=== PATIENT | male | born 1970 | race Caucasian/White ===

== ENCOUNTER 2017-11-24 13:28 | Inpatient (IN) | payer SELFPAY ==
[~2017-11-24] VITALS: Ht 193 cm; Wt 75.3 kg
[2017-11-24] VITALS (14 sets, daily range): BP systolic 100–143; BP diastolic 62–88; PULSE 66–98; RESP 16–20; TEMP 97.9–98.4; O2SAT 93–100
[2017-11-24] MEDS ORDERED: ETOMIDATE 40 MG/20 ML VIAL ONE (13:31)
[2017-11-24] MEDS ORDERED: SUCCINYLCHOLINE CHLORIDE 200 MG/10 ML VIAL ONE (13:31)
[2017-11-24] MEDS ORDERED: SODIUM CHLOR 0.9% 1000 ML INJ 1,000 ML IV ONE ×2 (13:45→16:45)
[2017-11-24] MEDS ORDERED: PROPOFOL 1000 MG/100 ML INJ 100 ML IV PRN (13:45)
--- NOTE | 2017-11-24 14:07 | PD ---
HPI Chief Complaint: Code Blue Time Seen by Provider: 13:45 Travel History International Travel<30 days: No (UNABLE TO OBTAIN) Contact w/Intl Traveler<30days: No (UNABLE TO OBTAIN) Traveled to known affect area: No (UNABLE TO OBTAIN) History of Present Illness HPI This patient presents emergently to the ER. I am told by paramedics that he was found on the ground at a gas station unresponsive. Bystanders told paramedics that he was a known drug user. Unclear if he overdosed or what happened to him. Obviously he can provide no history or review of systems. He arrives unresponsive. Paramedics initiated CPR briefly but after giving him Narcan he reportedly developed pulse and blood pressure. He said he initially was in asystole. Upon arrival he is a blood pressure 113 systolic and a heart rate of 80 sinus rhythm. [facility] Past Medical History Medical History: Unable to Obtain Diminished Hearing: No (UNABLE TO OBTAIN) Tetanus Vaccination: Unknown Past Surgical History Surgical History: Unable to Obtain Social History Alcohol Use: No (UNABLE TO OBTAIN) Tobacco Use: No (UNABLE TO OBTAIN) Substance Use: No (UNABLE TO OBTAIN) Allergies-Medications (Allergen,Severity, Reaction): Coded Allergies: No Allergy Information Available (Unverified , 11/24/17) Reported Meds & Prescriptions Reported Meds & Active Scripts Active Active Prescriptions or Reported Medications Unobtainable Review of Systems ROS Limitations: Clinical Condition, Altered Mental Status, Unresponsive, Poor Historian Physical Exam Narrative GENERAL: Well-nourished, well-developed patient was unresponsive. SKIN: Focused skin assessment reveals no rash and nodules. Skin is Warm and dry. HEAD: Atraumatic. Normocephalic. EYES: Pupils equal and round. They are not pinpoint. No scleral icterus. No injection or drainage. ENT: No nasal bleeding or discharge. Mucous membranes pink and moist. NECK: Trachea midline. No JVD. CARDIOVASCULAR: Regular rate and rhythm. No murmur appreciated. RESPIRATORY: Poor respiratory effort. Shallow breaths, no wheezing noted GASTROINTESTINAL: Abdomen soft, non-tender, nondistended. Hepatic and splenic margins not palpable. MUSCULOSKELETAL: No obvious deformities. No clubbing. No cyanosis. No edema. NEUROLOGICAL: No gag reflex. Unresponsive to pain stimuli. Possible to engage motor strength or sensation. Nonverbal PSYCHIATRIC: Impossible to test mood and affect; insight and judgment poor. Data Data Last Documented VS Vital Signs Date Time Temp Pulse Resp B/P (MAP) Pulse Ox O2 Delivery O2 Flow Rate FiO2 11/24/17 15:00 77 16 100/62 (75) 100 Ventilator 50 11/24/17 14:06 98.4 Orders Orders Etomidate Inj (Amidate Inj) (11/24/17 13:31) Succinylcholine Inj (Quelicin Inj) (11/24/17 13:31) Propofol 1000 Mg/100 Ml Inj (Diprivan 10 (11/24/17 13:45) Complete Blood Count With Diff (11/24/17 13:45) Comprehensive Metabolic Panel (11/24/17 13:45) Chest, Single Ap (11/24/17 ) Ct Brain W/O Iv Contrast(Rout) (11/24/17 ) Alcohol (Ethanol) (11/24/17 13:45) Drug Screen, Random Urine (11/24/17 13:45) Sodium Chlor 0.9% 1000 Ml Inj (Ns 1000 M (11/24/17 13:45) Arterial Blood Gas (Abg) (11/24/17 ) Urinary Catheter Insert/Apply (11/24/17 14:29) Gerald-Gastric Tube Insert/Mon (11/24/17 14:29) Restraints Non-Violent CHARITY.Q3H (11/24/17 14:29) Chest, Single Ap (11/24/17 ) Labs Laboratory Tests Test 11/24/17 13:50 11/24/17 14:20 11/24/17 14:27 White Blood Count 9.5 TH/MM3 Red Blood Count 5.08 MIL/MM3 Hemoglobin 17.9 GM/DL Hematocrit 51.6 % Mean Corpuscular Volume 101.6 FL Mean Corpuscular Hemoglobin 35.3 PG Mean Corpuscular Hemoglobin Concent 34.8 % Red Cell Distribution Width 13.2 % Platelet Count 224 TH/MM3 Mean Platelet Volume 7.8 FL Neutrophils (%) (Auto) 30.4 % Lymphocytes (%) (Auto) 61.2 % Monocytes (%) (Auto) 6.4 % Eosinophils (%) (Auto) 1.1 % Basophils (%) (Auto) 0.9 % Neutrophils # (Auto) 2.9 TH/MM3 Lymphocytes # (Auto) 5.8 TH/MM3 Monocytes # (Auto) 0.6 TH/MM3 Eosinophils # (Auto) 0.1 TH/MM3 Basophils # (Auto) 0.1 TH/MM3 CBC Comment AUTO DIFF Differential Total Cells Counted 100 Neutrophils % (Manual) 34 % Lymphocytes % 61 % Monocytes % 4 % Neutrophils # (Manual) 3.3 TH/MM3 Metamyelocytes 1 % Differential Comment FINAL DIFF MANUAL Atypical Lymphocytes % Platelet Estimate NORMAL Platelet Morphology Comment NORMAL Spherocytes 1+ Ovalocytes 1+ Blood Urea Nitrogen 6 MG/DL Creatinine 1.02 MG/DL Random Glucose 107 MG/DL Total Protein 8.2 GM/DL Albumin 3.9 GM/DL Calcium Level 8.5 MG/DL Alkaline Phosphatase 84 U/L Aspartate Amino Transf (AST/SGOT) 183 U/L Alanine Aminotransferase (ALT/SGPT) 113 U/L Total Bilirubin 0.4 MG/DL Sodium Level 142 MEQ/L Potassium Level 3.3 MEQ/L Chloride Level 106 MEQ/L Carbon Dioxide Level 22.1 MEQ/L Anion Gap 14 MEQ/L Estimat Glomerular Filtration Rate 63 ML/MIN Ethyl Alcohol Level 322 MG/DL Urine Opiates Screen POS Urine Barbiturates Screen NEG Urine Amphetamines Screen NEG Urine Benzodiazepines Screen POS Urine Cocaine Screen NEG Urine Cannabinoids Screen NEG Blood Gas Puncture Site RT RADIAL Blood Gas Patient Temperature 98.6 Blood Gas HCO3 23 mmol/L Blood Gas Base Excess -3.0 mmol/L Blood Gas Oxygen Saturation 94 % Arterial Blood pH 7.27 Arterial Blood Partial Pressure CO2 52 mmHg Arterial Blood Partial Pressure O2 361 mmHG Arterial Blood Oxygen Content 23.0 Vol % Arterial Blood Carboxyhemoglobin 4.7 % Arterial Blood Methemoglobin 0.7 % Blood Gas Hemoglobin 16.7 G/DL Oxygen Delivery Device VENTILATOR Blood Gas Ventilator Setting PRVC/14/500/1.0/+5 Blood Gas Inspired Oxygen 100 % MDM Medical Decision Making Medical Screen Exam Complete: Yes Emergency Medical Condition: Yes Medical Record Reviewed: Yes Differential Diagnosis Cardiopulmonary arrest, narcotic overdose, intracranial hemorrhage, cardiac arrhythmia Narrative Course Patient listed as a Frank Chau. Difficult to assess old records at this point. He will need to be identified prior to that happening Patient arrives critically ill. he is unresponsive but has good pulse and blood pressure. he has no airway control INTUBATION: The patient was put in optimal position for the procedure. Rapid sequence intubation was initiated by me using no medications. The patient was intubated with a 8-0 cuffed endotracheal tube. Tube placement was confirmed by visualization of the tube and balloon passing through the cords, capnometry and subsequent chest x-ray. Breath sounds were equal and well aerated bilaterally postintubation. No breath sounds over stomach. Patient tolerated procedure well. I placed bilateral external jugular IVs in addition a 2 peripherals in the arms for a total of 4 at this time He does not on gag at the tube so I started diprivan for sedation Giving him a liter normal saline IV bolus Workup is ordered He needed no medications for intubation. However after intubation he started gnawing on the tube and gagging so I started diprivan drip for sedation. At this point his vitals have normalized ABG reveals hypercarbia so that rate was increased to blow off CO2 He does have respiratory acidosis likely from hypoventilation and CO2 narcosis Alcohol is 322 and tox screen findings are noted Electrolytes and CBC normal with mild elevation of LFTs Case reviewed with system manager Dr. Marie who will admit Patient is now going to CT scanner for brain CT given his unresponsive state I will review the results of that but patient will be admitted to intensive care on ventilator Critical Care Narrative Aggregate critical care time was 79 minutes. Time to perform other separately billable procedures was not included in the critical care time. My time did not include minutes spent treating any other patients simultaneously or on activities that did not directly contribute to the patient's treatment. The services I provided to this patient were to treat and/or prevent clinically significant deterioration that could result in: Cardiopulmonary arrest, permanent neurologic deficit I provided critical care services requiring my management, as noted below: Chart data review, documentation time, medication orders and management, vital sign assessments/reviewing monitor data, ordering and reviewing lab tests, ordering and interpreting/reviewing x-rays and diagnostic studies, care of the patient and discussion of the patient with the admitting physicians. Diagnosis Primary Impression: Unresponsive state Additional Impressions: Alcohol intoxication Qualified Codes: F10.929 - Alcohol use, unspecified with intoxication, unspecified Drug ingestion Qualified Codes: T50.904A - Poisoning by unspecified drugs, medicaments and biological substances, undetermined, initial encounter Admitting Information Admitting Physician Requests: Admit Scripts Unable to Obtain Active Prescriptions or Reported Meds Cruz Zapata MD Nov 24, 2017 14:07
--- NOTE | 2017-11-24 14:19 | RADRPT ---
EXAM DATE/TIME: 11/24/2017 13:53 [facility] COMPARISON: No previous studies available for comparison. INDICATIONS : Post intubation. MEDICAL HISTORY : Unobtainable. SURGICAL HISTORY : Unobtainable. ENCOUNTER: Initial ACUITY: 1 day PAIN SCORE: Non-responsive. LOCATION: Bilateral chest FINDINGS: 2 portable frontal views of the chest show an endotracheal tube with the tip 9 cm cephalad to the car monisha. Nasogastric tube is coiled in the body of the stomach. Lungs are clear. No pneumothorax. No effu sions. Heart is normal in size. Bony structures are unremarkable. CONCLUSION: Endotracheal tube 9 cm cephalad to the gissell. Clear lungs. Kev Stevens Jr., MD on November 24, 2017 at 14:16 Board Certified Radiologist. This report was verified electronically.
[2017-11-24 14:22] LABS: AUTOMATED NEUTROPHIL # 2.9 TH/MM3 (1.8-7.7); BASOPHIL # 0.1 TH/MM3 (0-0.2); BASOPHIL % 0.9 % (0.0-2.0); EOSINOPHIL # 0.1 TH/MM3 (0-0.4); EOSINOPHIL % 1.1 % (0.0-4.0); HEMATOCRIT 51.6 % (39.0-51.0); HEMOGLOBIN 17.9 GM/DL (13.0-17.0); LYMPH % 61.2 % (9.0-44.0); LYMPHOCYTE # 5.8 TH/MM3 (1.0-4.8); MEAN CELL VOLUME 101.6 FL (80.0-100.0); MEAN CORPUSCULAR HEMOGLOBIN 35.3 PG (27.0-34.0); MEAN CORPUSCULAR HGB CONC 34.8 % (32.0-36.0); MEAN PLATELET VOLUME 7.8 FL (7.0-11.0); MONO % 6.4 % (0.0-8.0); MONOCYTE # 0.6 TH/MM3 (0-0.9); NEUT % 30.4 % (16.0-70.0); PLATELET COUNT 224 TH/MM3 (150-450); RED BLOOD COUNT 5.08 MIL/MM3 (4.50-5.90); RED CELL DISTRIBUTION WIDTH 13.2 % (11.6-17.2); WHITE BLOOD COUNT 9.5 TH/MM3 (4.0-11.0)
[2017-11-24 14:37] LABS: ALBUMIN 3.9 GM/DL (3.4-5.0); AST (GOT) 183 U/L (15-37); BICARBONATE 22.1 MEQ/L (21.0-32.0); BLOOD UREA NITROGEN 6 MG/DL (7-18); CALCIUM 8.5 MG/DL (8.5-10.1); CHLORIDE 106 MEQ/L (98-107); CREATININE 1.02 MG/DL (0.60-1.30); GLOMERULAR FILTRATION RATE 63 ML/MIN (>89); GLUCOSE,RANDOM 107 MG/DL (74-106); SODIUM (NA) 142 MEQ/L (136-145)
[2017-11-24 14:38] LABS: ALT (GPT) 113 U/L (12-78)
[2017-11-24 14:42] LABS: ALKALINE PHOSPHATASE 84 U/L (45-117); TOTAL BILIRUBIN ADULT 0.4 MG/DL (0.2-1.0); TOTAL PROTEIN 8.2 GM/DL (6.4-8.2)
[2017-11-24 15:04] LABS: LYMPHOCYTES 61 % (9-44); METAMYELOCYTES 1 % (0-1); MONOCYTES 4 % (0-8); NEUTROPHIL # MANUAL DIFF 3.3 TH/MM3 (1.8-7.7); OVALOCYTES 1+ (NORMAL); POLYS (SEG NEUTROPHILS) 34 % (16-70); SPHEROCYTES 1+ (NORMAL)
--- NOTE | 2017-11-24 15:24 | RADRPT ---
EXAM DATE/TIME: 11/24/2017 15:02 [facility] COMPARISON: CHEST SINGLE AP, November 24, 2017, 13:53. INDICATIONS : Post intubation. MEDICAL HISTORY : None. SURGICAL HISTORY : None. ENCOUNTER: Initial ACUITY: 1 day PAIN SCORE: Non-responsive. LOCATION: Bilateral chest FINDINGS: Endotracheal tube tip is well above the gissell, unchanged from prior. Gastric tube traverses the fie ld of view. The heart is normal size. The lungs are symmetrically aerated and clear. Both hemidiap hragms are well delineated. CONCLUSION: ET tube in good position. The lungs are clear. Kev Deshpande MD on November 24, 2017 at 15:22 Board Certified Radiologist. This report was verified electronically.
[2017-11-24] MEDS ORDERED: SODIUM CHLOR 0.9% 1000 ML INJ 1,000 ML IV SCH (15:57)
[2017-11-24] MEDS ORDERED: SODIUM CHLORIDE 0.9% FLUSH 10 ML FLUSH IV FLUSH PRN (16:00)
[2017-11-24] MEDS ORDERED: MISCELLANEOUS NURSING INFORMATION XX SCH (16:00)
[2017-11-24] MEDS ORDERED: CHLORHEXIDINE GLUCONATE 2 % 1 PACK (2 CLOTHS) TOP PRN (16:00)
--- NOTE | 2017-11-24 16:18 | RADRPT ---
EXAM DATE/TIME: 11/24/2017 16:05 [facility] COMPARISON: No previous studies available for comparison. INDICATIONS : Post cardiac arrest, vented. RADIATION DOSE: 64.63 CTDIvol (mGy) MEDICAL HISTORY : Non-responsive. SURGICAL HISTORY : Non-responsive. ENCOUNTER: Initial ACUITY: 1 day PAIN SCALE: Non-responsive LOCATION: Bilateral cranial TECHNIQUE: Multiple contiguous axial images were obtained of the head. Using automated exposure control and adj ustment of the mA and/or kV according to patient size, radiation dose was kept as low as reasonably a chievable to obtain optimal diagnostic quality images. DICOM format image data is available electro nically for review and comparison. FINDINGS: CEREBRUM: The ventricles are normal for age. No evidence of midline shift, mass lesion, hemorrhage or acute in farction. No extra-axial fluid collections are seen. POSTERIOR FOSSA: The cerebellum and brainstem are intact. The 4th ventricle is midline. The cerebellopontine angle i s unremarkable. EXTRACRANIAL: The visualized portion of the orbits is intact. SKULL: The calvaria is intact. No evidence of skull fracture. CONCLUSION: No acute findings in the brain. No evidence of acute hemorrhage. Kev Deshpande MD on November 24, 2017 at 16:15 Board Certified Radiologist. This report was verified electronically.
[2017-11-24] MEDS ORDERED: MORPHINE SULFATE 4 MG/ML INJ ONE (16:51)
[2017-11-24] MEDS ORDERED: ONDANSETRON HCL 4 MG/2 ML VIAL ONE (16:51)
[2017-11-24] MEDS ORDERED: POTASSIUM CHLOR 20 MEQ PREMIX 100 ML IV ONE (17:00)
--- NOTE | 2017-11-24 17:04 | HHI.HP ---
HPI Service Critical Care Medicine Primary Care Physician Unknown Admission Diagnosis unresponsive,unable to control airway,resp failure Diagnosis: Chief Complaint: Unresponsive Travel History International Travel<30 Days: No (UNABLE TO OBTAIN) Contact w/Intl Traveler <30 Da: No (UNABLE TO OBTAIN) Traveled to Known Affected Are: No (UNABLE TO OBTAIN) History of Present Illness Middle-aged gentleman with unknown past medical history was found down [place] the ground [place] the gas station unresponsive. History is limited, no family or friends at bedside, obtained entirely from ED chart. By standards present at that time told EMS that patient is a known drug user. On EMS arrival patient had no pulse CPR was briefly initiated and after a dose of Narcan patient regained pulse and blood pressure. Upon ED arrival patient remained unresponsive but with good blood pressure and good pulse. He was immediately intubated by ED physician without using any drugs and he was noticed gagging on the ET tube therefore he was started on propofol for sedation. He received 1 L normal saline bolus. He underwent a CT head which did not show any acute pathology. CCM service now consulted for ICU admission. Patient was seen in ER , on sedation, unresponsive. Review of Systems ROS Limitations: Altered Mental Status, Unresponsive Past Family Social History Allergies: Coded Allergies: No Allergy Information Available (Unverified , 11/24/17) Past Medical History Unobtainable, patient is intubated Past Surgical History Unobtainable, patient is intubated Reported Medications Unobtainable, patient is intubated Active Ordered Medications Current Medications Medications (Trade) Dose Ordered Sig/Elvis Route Start Time Stop Time Status Last Admin Thiamine HCl 100 mg/Sodium Chloride 101 ml @ 101 mls/hr DAILY IV 11/24/17 17:00 Sodium Chloride 1,000 ml @ 75 mls/hr [id number] IV 11/24/17 15:57 (NS Flush) 2 ml UNSCH PRN IV FLUSH 11/24/17 16:00 (NS Flush) 2 ml BID IV FLUSH 11/24/17 21:00 (Duoneb Neb) 1 ampule Q6HR NEB INH 11/24/17 16:00 (Peridex 0.12% Liq) 15 ml BID@08,20 MT 11/24/17 20:00 (Pepcid Inj) 20 mg Q12HR IV PUSH 11/24/17 21:00 Miscellaneous Information 1 [id number] XX 11/24/17 16:00 (Chlorhexidine 2% Cloth) 3 pack Taper DAILY@04 TOP 11/25/17 04:00 11/21/18 03:59 (Chlorhexidine 2% Cloth) 3 pack UNSCH PRN TOP 11/24/17 16:00 Propofol 100 ml @ 2.1 mls/hr TITRATE PRN IV 11/24/17 16:00 Potassium Chloride 100 ml @ 50 mls/hr BOLUS ONCE IV 11/24/17 17:00 11/24/17 18:59 Sodium Chloride 1,000 ml @ 999 mls/hr BOLUS ONCE IV 11/24/17 16:45 11/24/17 17:45 (Peridex 0.12% Liq) 15 ml BID@08,20 MT 11/24/17 20:00 UNV Family History Unobtainable, patient is intubated Social History Unobtainable, patient is intubated Physical Exam Vital Signs Vital Signs Date Time Temp Pulse Resp B/P (MAP) Pulse Ox O2 Delivery O2 Flow Rate FiO2 11/24/17 16:16 100 50 11/24/17 16:15 100 50 11/24/17 16:00 98.4 75 16 127/80 (96) 98 Ventilator 50 11/24/17 15:00 77 16 100/62 (75) 100 Ventilator 50 11/24/17 14:30 76 19 110/71 (84) 98 Ventilator 50 11/24/17 14:11 97 100 11/24/17 14:06 98.4 86 20 112/74 (87) 98 Ventilator 100 11/24/17 13:44 90 14 97 Ventilator 100 11/24/17 13:35 100 11/24/17 13:30 98 20 132/88 (103) 98 Physical Exam General -middle-aged gentleman, dishelved, intubated, unresponsive, ill- appearing, cachectic HEENT - pupils equal, reactive, sclerae anicteric, neck supple, no nuchal rigidity, neck veins not distended, no carotid bruit, poor dentition, ET tube in place CV - regular S1, S2, no murmurs Chest - clear b/l, good air entry, no wheezes Abdomen - soft, non-tender, non-distended, BS present, no hepatomegaly, no splenomegaly Skin - no rashes, some track calle Extremities - warm and well perfused, no edema, + peripheral pulses, no clubbing Neuro -intubated, sedated, unresponsive, pupils are equal and sluggishly reactive, positive corneal, no cough, does not breathe over the vent Laboratory Ethanol and U tox reviewed Laboratory Tests Test 11/24/17 13:50 11/24/17 14:20 11/24/17 14:27 White Blood Count 9.5 Red Blood Count 5.08 Hemoglobin 17.9 Hematocrit 51.6 Mean Corpuscular Volume 101.6 Mean Corpuscular Hemoglobin 35.3 Mean Corpuscular Hemoglobin Concent 34.8 Red Cell Distribution Width 13.2 Platelet Count 224 Mean Platelet Volume 7.8 Neutrophils (%) (Auto) 30.4 Lymphocytes (%) (Auto) 61.2 Monocytes (%) (Auto) 6.4 Eosinophils (%) (Auto) 1.1 Basophils (%) (Auto) 0.9 Neutrophils # (Auto) 2.9 Lymphocytes # (Auto) 5.8 Monocytes # (Auto) 0.6 Eosinophils # (Auto) 0.1 Basophils # (Auto) 0.1 CBC Comment AUTO DIFF Differential Total Cells Counted 100 Neutrophils % (Manual) 34 Lymphocytes % 61 Monocytes % 4 Neutrophils # (Manual) 3.3 Metamyelocytes 1 Differential Comment FINAL DIFF MANUAL Atypical Lymphocytes Platelet Estimate NORMAL Platelet Morphology Comment NORMAL Spherocytes 1+ Ovalocytes 1+ Blood Urea Nitrogen 6 Creatinine 1.02 Random Glucose 107 Total Protein 8.2 Albumin 3.9 Calcium Level 8.5 Alkaline Phosphatase 84 Aspartate Amino Transf (AST/SGOT) 183 Alanine Aminotransferase (ALT/SGPT) 113 Total Bilirubin 0.4 Sodium Level 142 Potassium Level 3.3 Chloride Level 106 Carbon Dioxide Level 22.1 Anion Gap 14 Estimat Glomerular Filtration Rate 63 Ethyl Alcohol Level 322 Urine Opiates Screen POS Urine Barbiturates Screen NEG Urine Amphetamines Screen NEG Urine Benzodiazepines Screen POS Urine Cocaine Screen NEG Urine Cannabinoids Screen NEG Blood Gas Puncture Site RT RADIAL Blood Gas Patient Temperature 98.6 Blood Gas HCO3 23 Blood Gas Base Excess -3.0 Blood Gas Oxygen Saturation 94 Arterial Blood pH 7.27 Arterial Blood Partial Pressure CO2 52 Arterial Blood Partial Pressure O2 361 Arterial Blood Oxygen Content 23.0 Arterial Blood Carboxyhemoglobin 4.7 Arterial Blood Methemoglobin 0.7 Blood Gas Hemoglobin 16.7 Oxygen Delivery Device VENTILATOR Blood Gas Ventilator Setting PRVC/14/500/1.0/+5 Blood Gas Inspired Oxygen 100 Result Diagram: 11/24/17 1350 11/24/17 1350 Imaging Last Impressions Chest X-Ray 11/24/17 0000 Signed Impressions: Service Date/Time: November 15:02 - CONCLUSION: ET tube in good position. The lungs are clear. MD Bo Chao VTE Risk Assessment Caprini VTE Risk Assessment: Mod/High Risk (score >= 2) Caprini Risk Assessment Model Point Value = 1 Point Value = 2 Point Value = 3 Point Value = 5 Age 41-60 Minor surgery BMI > 25 kg/m2 Swollen legs Varicose veins or History of unexplained or recurrent spontaneous Oral contraceptives or hormone replacement Sepsis (< 1 month) Serious lung disease, including pneumonia (< 1 month) Abnormal pulmonary function Acute myocardial infarction Congestive heart failure (< 1 month) History of inflammatory bowel disease Medical patient at bed rest Age 61-74 Arthroscopic surgery Major open surgery (> 45 min) Laparoscopic surgery (> 45 min) Malignancy Confined to bed (> 72 hours) Immobilizing plaster cast Central venous access Age >= 75 History of VTE Family history of VTE Factor V Leiden Prothrombin [id number] Lupus anticoagulant Anticardiolipin antibodies Elevated serum homocysteine Heparin-induced thrombocytopenia Other congenital or acquired thrombophilia Stroke (< 1 month) Elective arthroplasty Hip, pelvis, or leg fracture Acute spinal cord injury (< 1 month) Prophylaxis Regimen Total Risk Factor Score Risk Level Prophylaxis Regimen 0-1 Low Early ambulation 2 Moderate Order ONE of the following: *Sequential Compression Device (SCD) *Heparin 5000 units SQ BID 3-4 Higher Order ONE of the following medications: *Heparin 5000 units SQ TID *Enoxaparin/Lovenox 40 mg SQ daily (WT < 150 kg, CrCl > 30 mL/min) *Enoxaparin/Lovenox 30 mg SQ daily (WT < 150 kg, CrCl > 10-29 mL/min) *Enoxaparin/Lovenox 30 mg SQ BID (WT < 150 kg, CrCl > 30 mL/min) AND/OR *Sequential Compression Device (SCD) 5 or more Highest Order ONE of the following medications: *Heparin 5000 units SQ TID (Preferred with Epidurals) *Enoxaparin/Lovenox 40 mg SQ daily (WT < 150 kg, CrCl > 30 mL/min) *Enoxaparin/Lovenox 30 mg SQ daily (WT < 150 kg, CrCl > 10-29 mL/min) *Enoxaparin/Lovenox 30 mg SQ BID (WT < 150 kg, CrCl > 30 mL/min) AND *Sequential Compression Device (SCD) Assessment and Plan Assessment and Plan 1. Cardiac arrest requiring brief episode of CPR with successful ROSC 2. Acute encephalopathy 3. Drug overdose likely leading to # 1 4. Alcohol intoxication 5. Acute respiratory failure due to inability to protect the airway 6. Hypokalemia 7. Elevated transaminases likely secondary to alcohol abuse 1. Admit to ICU 2. Continue mechanical ventilation with PRBC, currently tidal volume 500, respiratory rate of 18 PEEP of 5 and an FiO2 of 0.5. Patient is synchronized with the vent, Pip is 19, no auto PEEP 3. Vent bundle and bronchodilators 4. Serial cardiac enzymes and echocardiogram 5. Check lactic acid 6. Give additional fluid bolus 7. Monitor urine output 8. Replete potassium 9. Blood cultures in the setting of IV drug abuse 10. Acute hepatitis profile and HIV testing 11. Repeat chest x-ray in a.m. 12. GI/DVT prophylaxis 13. Thiamine and folic acid Patient is critically ill post brief episode of cardiac arrest, drug overdose, alcohol abuse, acute respiratory failure requiring intubation and mechanical ventilation and he is at very high risk for further deterioration and . No family is present at bedside. I spent 35 minutes of providing critical care time, excluding procedures, managing ventilator, fluids, reviewing data, ordering labs, discussing with nursing staff and and ED physician. Ford Russo MD Nov 24, 2017 17:04
[2017-11-24] MEDS ORDERED: FOLIC ACID 1 MG TAB PO SCH (17:15)
[2017-11-24] MEDS: RESP: ALBUTEROL 2.5 MG/IPRATROPIUM 0.5 MG NEB (SCH) INH ×2 (17:16→19:55)
[2017-11-24 17:57] LABS: AMORPHOUS SEDIMENT, URINE RARE; BACTERIA, URINE RARE /hpf; BILIRUBIN, URINE NEG (NEG); BLOOD, URINE TRACE (NEG); GLUCOSE,URINE NEG (NEG); HYALINE CAST, URINE 44 /lpf (RARE); KETONE, URINE NEG (NEG); MUCUS URINE FEW /lpf (OCC); NITRITE,URINE NEG (NEG); PH, URINE 5.5 (5.0-8.5); SQUAMOUS EPITHELIAL CELL URINE 2 /hpf (0-5); URINE COLOR YELLOW (YELLW/STRAW); URINE LEUKOCYTE ESTERASE SMALL (NEG)
[2017-11-24 18:05] LABS: MAGNESIUM 2.2 MG/DL (1.5-2.5)
[2017-11-24 18:08] LABS: TROPONIN I 0.03 NG/ML (0.02-0.05)
[2017-11-24] MEDS: LACTATED RINGER'S 1000 ML INJ 1,000 ML IV SCH (19:09)
[2017-11-24] MEDS: CHLORHEXIDINE 0.12% (ORAL KIT) 15 ML CUP MT SCH (19:50)
[2017-11-24] MEDS: SODIUM CHLORIDE 0.9% FLUSH 10 ML FLUSH IV FLUSH SCH (19:50)
[2017-11-24] MEDS: CHLORHEXIDINE GLUCONATE 2 % 1 PACK (2 CLOTHS) TOP SCH (19:53)
[2017-11-24] MEDS ORDERED: CHLORHEXIDINE 0.12% (ORAL KIT) 15 ML CUP MT SCH (20:00)
[2017-11-24] MEDS: FOLIC ACID 1 MG TAB PO SCH (20:13)
[2017-11-24] MEDS: THIAMINE INJ 100 MG in SODIUM CHLORIDE 0.9% INJ 100 ML IV SCH (20:13)
[2017-11-24] MEDS: FAMOTIDINE 20 MG/2 ML VIAL IV PUSH SCH (20:13)
[2017-11-24] MEDS: PROPOFOL 1000 MG/100 ML INJ 100 ML IV PRN (22:28)
[2017-11-25] VITALS (18 sets, daily range): BP systolic 94–128; BP diastolic 61–80; PULSE 55–100; RESP 16–24; TEMP 98–99.8; O2SAT 96–100
[2017-11-25] MEDS: LACTATED RINGER'S 1000 ML INJ 1,000 ML IV SCH (02:06)
[2017-11-25] MEDS: PROPOFOL 1000 MG/100 ML INJ 100 ML IV PRN ×3 (02:06→10:10)
[2017-11-25] MEDS: RESP: ALBUTEROL 2.5 MG/IPRATROPIUM 0.5 MG NEB (SCH) INH ×4 (04:16→20:05)
[2017-11-25 05:47] LABS: AUTOMATED NEUTROPHIL # 8.4 TH/MM3 (1.8-7.7); BASOPHIL % 0.2 % (0.0-2.0); HEMATOCRIT 50.1 % (39.0-51.0); HEMOGLOBIN 17.7 GM/DL (13.0-17.0); LYMPH % 8.2 % (9.0-44.0); LYMPHOCYTE # 0.8 TH/MM3 (1.0-4.8); MEAN CELL VOLUME 101.6 FL (80.0-100.0); MEAN CORPUSCULAR HGB CONC 35.4 % (32.0-36.0); MEAN PLATELET VOLUME 7.9 FL (7.0-11.0); MONO % 4.7 % (0.0-8.0); MONOCYTE # 0.5 TH/MM3 (0-0.9); NEUT % 86.9 % (16.0-70.0); PLATELET COUNT 127 TH/MM3 (150-450); RED BLOOD COUNT 4.93 MIL/MM3 (4.50-5.90); RED CELL DISTRIBUTION WIDTH 13.3 % (11.6-17.2); WHITE BLOOD COUNT 9.7 TH/MM3 (4.0-11.0)
[2017-11-25 05:53] LABS: ALKALINE PHOSPHATASE 79 U/L (45-117); ALT (GPT) 109 U/L (12-78); AST (GOT) 152 U/L (15-37); BICARBONATE 27.1 MEQ/L (21.0-32.0); BLOOD UREA NITROGEN 8 MG/DL (7-18); CALCIUM 8.7 MG/DL (8.5-10.1); CHLORIDE 106 MEQ/L (98-107); CREATININE 0.79 MG/DL (0.60-1.30); GLOMERULAR FILTRATION RATE 106 ML/MIN (>89); GLUCOSE,RANDOM 79 MG/DL (74-106); MAGNESIUM 1.6 MG/DL (1.5-2.5); SODIUM (NA) 142 MEQ/L (136-145); TOTAL PROTEIN 8.3 GM/DL (6.4-8.2); TROPONIN I 0.07 NG/ML (0.02-0.05)
--- NOTE | 2017-11-25 06:36 | RADRPT ---
EXAM DATE/TIME: 11/25/2017 05:39 [facility] COMPARISON: CHEST SINGLE AP, November 24, 2017, 15:02. INDICATIONS : Evaluate for infiltrate. MEDICAL HISTORY : None. SURGICAL HISTORY : None. ENCOUNTER: Subsequent ACUITY: 2 days PAIN SCORE: Non-responsive. LOCATION: chest FINDINGS: Lungs remain clear. No pleural effusion. No pneumothorax. Endotracheal tube tip is approximately 3.5 cm above the gissell. Nasogastric tube courses into the sto mach. CONCLUSION: No significant change. Lungs remain clear. Frank Tripp MD on November 25, 2017 at 6:34 Board Certified Radiologist. This report was verified electronically.
[2017-11-25] MEDS: FAMOTIDINE 20 MG/2 ML VIAL IV PUSH SCH ×2 (08:36→19:49)
[2017-11-25] MEDS: FOLIC ACID 1 MG TAB PO SCH (08:36)
[2017-11-25] MEDS: SODIUM CHLORIDE 0.9% FLUSH 10 ML FLUSH IV FLUSH SCH ×2 (08:36→19:49)
[2017-11-25] MEDS: THIAMINE INJ 100 MG in SODIUM CHLORIDE 0.9% INJ 100 ML IV SCH (08:38)
[2017-11-25] MEDS: CHLORHEXIDINE 0.12% (ORAL KIT) 15 ML CUP MT SCH ×2 (08:47→19:06)
[2017-11-25] MEDS ORDERED: ENOXAPARIN SODIUM 40 MG/0.4 ML SYRINGE SQ SCH (09:00)
[2017-11-25 10:56] LABS: HEPATITIS A AB IGM NEGATIVE (NEGATIVE); HEPATITIS B CORE AB IGM NEGATIVE (NEGATIVE); HEPATITIS B SURFACE ANTIGEN NEGATIVE (NEGATIVE); HEPATITIS C AB IgG REACTIVE (NEGATIVE)
[2017-11-25] MEDS ORDERED: LORazepam 1 MG TAB PO PRN (11:00)
[2017-11-25] MEDS ORDERED: FLUMAZENIL 0.5 MG/5 ML VIAL IV PUSH PRN (11:00)
[2017-11-25] MEDS ORDERED: LORazepam 2 MG TAB PO PRN (11:00)
[2017-11-25] MEDS ORDERED: LORazepam 2 MG/ML VIAL IV PUSH PRN (11:00)
--- NOTE | 2017-11-25 11:05 | HHI.CCPN ---
Subjective Remarks/Hospital Course Middle-aged gentleman with unknown past medical history [place]. History is limited, no family or friends at bedside, obtained entirely from ED chart. By standards present at that time told EMS that patient is a known drug user. On EMS arrival patient had no pulse CPR was briefly initiated and after a dose of Narcan patient regained pulse and blood pressure. Upon ED arrival patient remained unresponsive but with good blood pressure and good pulse. He was immediately intubated by ED physician without using any drugs and he was noticed gagging on the ET tube therefore he was started on propofol for sedation. He received 1 L normal saline bolus. He underwent a CT head which did not show any acute pathology. [facility] service now consulted for ICU admission. Patient was seen in ER , on sedation, unresponsive. SUBJ 11/25: Patient remains intubated sedated with propofol. Gets agitated on sedation hold but tolerate CPAP. Chest x-ray clear. Plan for weaning to extubation Objective Vital Signs Date Time Temp Pulse Resp B/P (MAP) Pulse Ox O2 Delivery O2 Flow Rate FiO2 11/25/17 10:40 81 11/25/17 08:16 96 35 11/25/17 08:00 99.8 24 112/72 (85) 11/24/17 17:00 Ventilator Intake and Output 11/25/17 11/25/17 11/26/17 08:00 16:00 00:00 Intake Total 1754 ml Output Total 850 ml Balance 904 ml Result Diagram: 11/25/17 0512 11/25/17 0512 Other Results Laboratory Tests Test 11/24/17 14:27 11/25/17 06:07 Blood Gas Puncture Site RT RADIAL LT RADIAL Blood Gas Patient Temperature 98.6 98.6 Blood Gas HCO3 23 mmol/L (22-26) 25 mmol/L (22-26) Blood Gas Base Excess -3.0 mmol/L (-2-2) 0.4 mmol/L (-2-2) Blood Gas Oxygen Saturation 94 % (90-100) 94 % (90-100) Arterial Blood pH 7.27 (7.380-7.420) 7.39 (7.380-7.420) Arterial Blood Partial Pressure CO2 52 mmHg (38-42) 42 mmHg (38-42) Arterial Blood Partial Pressure O2 361 mmHG (61-120) 93 mmHg (61-120) Arterial Blood Oxygen Content 23.0 Vol % (12.0-20.0) 20.5 Vol % (12.0-20.0) Arterial Blood Carboxyhemoglobin 4.7 % (0-4) 1.0 % (0-4) Arterial Blood Methemoglobin 0.7 % (0-2) 1.6 % (0-2) Blood Gas Hemoglobin 16.7 G/DL (12.0-16.0) 15.4 G/DL (12.0-16.0) Oxygen Delivery Device VENTILATOR VENTILATOR Blood Gas Ventilator Setting [facility]/14/500/1.0/+5 SEE COMMENTS Blood Gas Inspired Oxygen 100 % 40 % Imaging Last Impressions Chest X-Ray 11/24/17 0000 Signed Impressions: Service Date/Time: November 15:02 - CONCLUSION: ET tube in good position. The lungs are clear. Kev Deshpande MD Objective Remarks General -middle-aged gentleman, disheveled, intubated, cachectic HEENT - pupils equal, reactive, sclerae anicteric, neck supple, no nuchal rigidity, poor dentition, ET tube in place CV - regular S1, S2, no murmurs Chest - clear b/l, good air entry, no wheezes Abdomen - soft, non-tender, non-distended, BS present, no hepatomegaly, no splenomegaly Skin - no rashes, some track calle Extremities - warm and well perfused, no edema, + peripheral pulses, no clubbing Neuro -intubated, sedated, pupils are equal and sluggishly reactive, positive corneal. Opens eyes follows commands when sedation held A/P Assessment and Plan 1. Cardiac arrest requiring brief episode of CPR, with successful ROSC after Narcan 2. Acute encephalopathy 3. Drug overdose likely leading to # 1 4. Alcohol intoxication 5. Acute respiratory failure due to inability to protect the airway 6. Hypokalemia 7. Elevated transaminases likely secondary to alcohol abuse 1. Continue ICU care 2. Currently on PRVC. Brief CPAP with extubation 3. Start [facility] protocol for alcohol withdrawal after extubation 4. Serial cardiac enzymes and echocardiogram 5. Chest x-ray is clear 6. Discontinue IV fluids, discontinue propofol 7. Monitor urine output 8. Replete electrolytes per protocol 9. F/U Blood cultures in the setting of IV drug abuse 10. Acute hepatitis profile and HIV testing 11. Repeat chest x-ray as needed 12. GI/DVT prophylaxis 13. Thiamine and folic acid I spent 32 minutes of providing critical care time, excluding procedures, managing ventilator, fluids, reviewing data, ordering labs, discussing with nursing staff and and RT. patient remains critically ill but stable respiratory cota improving but anticipated to go into drug and alcohol withdrawal related to heavy use Alex Marie MD Nov 25, 2017 11:05
[2017-11-25] MEDS: LORazepam 2 MG/ML VIAL IV PUSH PRN ×5 (11:57→22:32)
--- NOTE | 2017-11-25 13:59 | EKG ---
Date Performed: 11/24/2017 Time Performed: 13:50:16 PTAGE: 89 years EKG: Sinus rhythm POSSIBLE LEFT ATRIAL ENLARGEMENT BORDERLINE ECG NO PREVIOUS TRACING / 1350 DOCTOR: Lucinda Rodriguez Interpretating Date/Time 11/25/2017 13:57:03
[2017-11-25] MEDS ORDERED: Vancomycin Consult Pharmacy 1 EA OTHER SCH (15:45)
--- NOTE | 2017-11-25 16:40 | ECHRPT ---
Indication: CHEST PAIN CONCLUSIONS The left ventricular systolic function is hyperdynamic with an estimated ejection fraction in the ra nge of 65- 70%. Normal left ventricular size. Wall thickness is normal. No regional wall motion abnormalities are present. BP: 110 / 62 HR: 78 Rhythm: Sinus MEASUREMENTS (Male / Female) Normal Values Technical Quality:Fair 2D ECHO LV Diastolic Diameter PLAX 3.9 cm 4.2 - 5.9 / 3.9 - 5.3 cm LV Systolic Diameter PLAX 2.7 cm IVS Diastolic Thickness 1.0 cm 0.6 - 1.0 / 0.6 - 0.9 cm LVPW Diastolic Thickness 1.0 cm 0.6 - 1.0 / 0.6 - 0.9 cm LV Relative Wall Thickness 0.5 RV Internal Dim ED PLAX 2.1 cm LVOT Diameter 1.9 cm LA Systolic Diameter LX 2.4 cm 3.0 - 4.0 / 2.7 - 3.8 cm M-MODE Aortic Root Diameter MM 2.3 cm AV Cusp Separation MM 1.9 cm DOPPLER AV Peak Velocity 140.5 cm/s AV Peak Gradient 7.9 mmHg LVOT Peak Velocity 107.0 cm/s LVOT Peak Gradient 4.6 mmHg AV Area Cont Eq pk 2.2 cm LV E' Lateral Velocity 6.8 cm/s LV E' Septal Velocity 9.0 cm/s PV Peak Velocity 118.0 cm/s PV Peak Gradient 5.6 mmHg FINDINGS LEFT VENTRICLE The left ventricular systolic function is hyperdynamic with an estimated ejection fraction in the ra nge of 65- 70%. Normal left ventricular size. Wall thickness is normal. No regional wall motion abnormalities are present. RIGHT VENTRICLE Normal right ventricular size and systolic function. LEFT ATRIUM The left atrial size is normal. RIGHT ATRIUM The right atrial size is normal. ATRIAL SEPTUM Normal atrial septal thickness without atrial level shunting by limited color doppler interrogation. AORTA The aortic root and proximal ascending aorta are normal in size on limited imaging. MITRAL VALVE Structurally normal mitral valve. No mitral valve stenosis or regurgitation. AORTIC VALVE Trileaflet aortic valve. No aortic valve stenosis or regurgitation. TRICUSPID VALVE Structurally normal tricuspid valve. No tricuspid valve stenosis or regurgitation. PULMONARY VALVE The pulmonary valve is not well visualized. VESSELS The inferior vena cava is normal in size. PERICARDIUM No pericardial effusion. Marc Chavez MD, FACC (Electronically Signed) Final Date:25 November 2017 16:40
[2017-11-25] MEDS: VANCOMYCIN INJ 1,250 MG in SODIUM CHLOR 0.9% 250 ML INJ 250 ML IV SCH (16:46)
[2017-11-26] VITALS (21 sets, daily range): BP systolic 114–145; BP diastolic 65–97; PULSE 62–111; RESP 16–30; TEMP 97.9–98.7; O2SAT 68–100
[2017-11-26] MEDS: RESP: ALBUTEROL 2.5 MG/IPRATROPIUM 0.5 MG NEB (SCH) INH ×4 (03:06→20:15)
[2017-11-26] MEDS: VANCOMYCIN INJ 1,250 MG in SODIUM CHLOR 0.9% 250 ML INJ 250 ML IV SCH (03:23)
[2017-11-26] MEDS: CHLORHEXIDINE GLUCONATE 2 % 1 PACK (2 CLOTHS) TOP SCH (03:23)
[2017-11-26] MEDS: LORazepam 2 MG/ML VIAL IV PUSH PRN ×5 (06:02→22:38)
[2017-11-26 06:41] LABS: AUTOMATED NEUTROPHIL # 7.2 TH/MM3 (1.8-7.7); BASOPHIL % 0.3 % (0.0-2.0); EOSINOPHIL % 0.4 % (0.0-4.0); HEMATOCRIT 42.3 % (39.0-51.0); HEMOGLOBIN 14.9 GM/DL (13.0-17.0); MEAN CELL VOLUME 100.9 FL (80.0-100.0); MEAN CORPUSCULAR HEMOGLOBIN 35.5 PG (27.0-34.0); MEAN CORPUSCULAR HGB CONC 35.2 % (32.0-36.0); MEAN PLATELET VOLUME 8.7 FL (7.0-11.0); MONO % 5.1 % (0.0-8.0); MONOCYTE # 0.4 TH/MM3 (0-0.9); NEUT % 82.2 % (16.0-70.0); PLATELET COUNT 72 TH/MM3 (150-450); RED BLOOD COUNT 4.19 MIL/MM3 (4.50-5.90); WHITE BLOOD COUNT 8.7 TH/MM3 (4.0-11.0)
[2017-11-26 07:02] LABS: ALKALINE PHOSPHATASE 56 U/L (45-117); ALT (GPT) 63 U/L (12-78); AST (GOT) 62 U/L (15-37); BICARBONATE 30.6 MEQ/L (21.0-32.0); BLOOD UREA NITROGEN 9 MG/DL (7-18); CALCIUM 8.4 MG/DL (8.5-10.1); CHLORIDE 106 MEQ/L (98-107); CREATININE 0.71 MG/DL (0.60-1.30); GLOMERULAR FILTRATION RATE 120 ML/MIN (>89); GLUCOSE,RANDOM 83 MG/DL (74-106); SODIUM (NA) 143 MEQ/L (136-145); TOTAL BILIRUBIN ADULT 1.3 MG/DL (0.2-1.0); TOTAL PROTEIN 6.9 GM/DL (6.4-8.2)
[2017-11-26] MEDS: CHLORHEXIDINE 0.12% (ORAL KIT) 15 ML CUP MT SCH ×2 (08:00→20:00)
[2017-11-26 08:55] LABS: BANDS 13 % (0-6); LYMPHOCYTES 9 % (9-44); MONOCYTES 7 % (0-8); NEUTROPHIL # MANUAL DIFF 7.3 TH/MM3 (1.8-7.7); POLYS (SEG NEUTROPHILS) 71 % (16-70)
--- NOTE | 2017-11-26 10:13 | HHI.CCPN ---
Subjective Remarks/Hospital Course Middle-aged gentleman with unknown past medical history was [place] down [place] the [place] the [place] station unresponsive. History is limited, no family or friends at bedside, obtained entirely from ED chart. By standards present at that time told EMS that patient is a known drug user. On EMS arrival patient had no pulse CPR was briefly initiated and after a dose of Narcan patient regained pulse and blood pressure. Upon ED arrival patient remained unresponsive but with good blood pressure and good pulse. He was immediately intubated by ED physician without using any drugs and he was noticed gagging on the ET tube therefore he was started on propofol for sedation. He received 1 L normal saline bolus. He underwent a CT head which did not show any acute pathology. [facility] service now consulted for ICU admission. Patient was seen in ER , on sedation, unresponsive. SUBJ 11/25: Patient remains intubated sedated with propofol. Gets agitated on sedation hold but tolerate CPAP. Chest x-ray clear. Plan for weaning to extubation 11/26: Extubated yesterday currently in severe alcohol and drug withdrawal in four-point restraints for patient's safety. Receiving Ativan per [facility]WA protocol. We will start scheduled Librium 25 mg every 6 hours Objective Vital Signs Date Time Temp Pulse Resp B/P (MAP) Pulse Ox O2 Delivery O2 Flow Rate FiO2 11/26/17 07:44 100 Nasal Cannula 2.00 11/26/17 06:00 77 11/26/17 04:00 98.3 20 127/70 (89) 11/25/17 11:30 36 Intake and Output 11/26/17 11/26/17 11/26/17 07:59 15:59 23:59 Output Total 400 ml Balance -400 ml Result Diagram: 11/26/17 0556 11/26/17 0556 Imaging Last Impressions Chest X-Ray 11/24/17 0000 Signed Impressions: Service Date/Time: November 15:02 - CONCLUSION: ET tube in good position. The lungs are clear. Kev Deshpande MD Objective Remarks General -middle-aged gentleman, disheveled, agitated in four-point restraints HEENT - pupils equal, reactive, sclerae anicteric, neck supple, no nuchal rigidity, poor dentition CV - regular S1, S2, no murmurs. Tachycardic Chest - clear b/l, good air entry, no wheezes Abdomen - soft, non-tender, non-distended, BS present Skin - no rashes, some track calle Extremities - warm and well perfused, no edema, + peripheral pulses, no clubbing Neuro -patient is agitated encephalopathic, mumbles few words. Moving all 4 extremities requiring restraints for safety A/P Assessment and Plan 1. Cardiac arrest requiring brief episode of CPR, with successful ROSC after Narcan 2. Acute encephalopathy 3. Drug overdose likely leading to # 1 4. Alcohol, drugl intoxication 5. Acute respiratory failure due to inability to protect the airway, now extubated 6. Hypokalemia 7. Elevated transaminases likely secondary to alcohol abuse 8. Thrombocytopenia most likely from alcohol abuse, HIT unlikely 1. Follow [facility] protocol for severe alcohol and drug withdrawal. Start scheduled Librium 25 mg every 6 hours 2. Extubated maintaining oxygen saturation. DuoNeb every 6 hours as needed 3. Start Precedex if needed 4. Serial cardiac enzymes neg and echocardiogram, nl EF, no vegedtations 5. Continue Vanc until final cultures, ID back 6. Monitor urine output 7. Replete electrolytes per protocol 8. Acute hepatitis profile and HIV testing. Hep C reactive 9. GI/DVT prophylaxis 10. Thiamine and folic acid 11. DC Lovenox due to thrombocytopenia I spent 30 minutes of providing critical care time, excluding procedures, managing ventilator, fluids, reviewing data, ordering labs, discussing with nursing staff and and RT. patient remains critically ill but stable respiratory cota improving but anticipated to go into drug and alcohol withdrawal related to heavy use Alex Marie MD Nov 26, 2017 10:13
[2017-11-26] MEDS: chlordiazePOXIDE 25 MG CAP PO SCH ×2 (11:18→22:38)
[2017-11-26] MEDS: SODIUM CHLORIDE 0.9% FLUSH 10 ML FLUSH IV FLUSH SCH ×2 (11:19→22:37)
[2017-11-26] MEDS: FAMOTIDINE 20 MG/2 ML VIAL IV PUSH SCH ×2 (11:19→22:37)
[2017-11-26] MEDS: FOLIC ACID 1 MG TAB PO SCH (11:20)
[2017-11-26] MEDS: THIAMINE INJ 100 MG in SODIUM CHLORIDE 0.9% INJ 100 ML IV SCH (11:20)
[2017-11-27] VITALS (23 sets, daily range): BP systolic 120–160; BP diastolic 67–99; PULSE 61–102; RESP 16–27; TEMP 98–100.2; O2SAT 91–100
[2017-11-27] MEDS: LORazepam 2 MG/ML VIAL IV PUSH PRN ×10 (03:06→22:55)
[2017-11-27] MEDS: RESP: ALBUTEROL 2.5 MG/IPRATROPIUM 0.5 MG NEB (SCH) INH ×4 (03:53→20:31)
[2017-11-27] MEDS: CHLORHEXIDINE GLUCONATE 2 % 1 PACK (2 CLOTHS) TOP SCH (04:00)
[2017-11-27] MEDS: chlordiazePOXIDE 25 MG CAP PO SCH ×4 (05:00→22:55)
[2017-11-27] MEDS: VANCOMYCIN INJ 1,250 MG in SODIUM CHLOR 0.9% 250 ML INJ 250 ML IV SCH ×2 (05:36→15:26)
[2017-11-27] MEDS: CHLORHEXIDINE 0.12% (ORAL KIT) 15 ML CUP MT SCH ×2 (08:00→20:00)
[2017-11-27] MEDS: THIAMINE INJ 100 MG in SODIUM CHLORIDE 0.9% INJ 100 ML IV SCH (08:19)
[2017-11-27] MEDS: FAMOTIDINE 20 MG/2 ML VIAL IV PUSH SCH ×2 (08:20→20:42)
[2017-11-27] MEDS: FOLIC ACID 1 MG TAB PO SCH (08:20)
[2017-11-27] MEDS: SODIUM CHLORIDE 0.9% FLUSH 10 ML FLUSH IV FLUSH SCH ×2 (08:20→18:43)
--- NOTE | 2017-11-27 11:38 | HHI.CCPN ---
Subjective Remarks/Hospital Course Middle-aged gentleman with unknown past medical history was [place] the [place] station unresponsive. History is limited, no family or friends at bedside, obtained entirely from ED chart. By standards present at that time told EMS that patient is a known drug user. On EMS arrival patient had no pulse CPR was briefly initiated and after a dose of Narcan patient regained pulse and blood pressure. Upon ED arrival patient remained unresponsive but with good blood pressure and good pulse. He was immediately intubated by ED physician without using any drugs and he was noticed gagging on the ET tube therefore he was started on propofol for sedation. He received 1 L normal saline bolus. He underwent a CT head which did not show any acute pathology. [facility] service now consulted for ICU admission. Patient was seen in ER , on sedation, unresponsive. SUBJ 11/25: Patient remains intubated sedated with propofol. Gets agitated on sedation hold but tolerate CPAP. Chest x-ray clear. Plan for weaning to extubation 11/26: Extubated yesterday currently in severe alcohol and drug withdrawal in four-point restraints for patient's safety. Receiving Ativan per [facility] protocol. We will start scheduled Librium 25 mg every 6 hours 11/27: Sedated from receiving Ativan per [facility] protocol. Able to say his name otherwise remained sedated. Asked RN to remove LE restraints Objective Vital Signs Date Time Temp Pulse Resp B/P (MAP) Pulse Ox O2 Delivery O2 Flow Rate FiO2 11/27/17 07:46 100 Nasal Cannula 2.00 11/27/17 06:00 79 11/27/17 04:00 98.2 16 150/87 (108) 11/25/17 11:30 36 Intake and Output 11/27/17 11/27/17 11/28/17 08:00 16:00 00:00 Intake Total 60 ml Balance 60 ml Result Diagram: 11/26/17 0556 11/26/17 0556 Other Results Microbiology Date/Time Source Procedure Growth Status 11/24/17 14:20 Urine Catheterized Urine Urine Culture - Final NO GROWTH IN 48 HOURS. Complete Imaging Last Impressions Chest X-Ray 11/24/17 0000 Signed Impressions: Service Date/Time: November 15:02 - CONCLUSION: ET tube in good position. The lungs are clear. Kev Deshpande MD Objective Remarks General -middle-aged gentleman, disheveled, agitated in four-point restraints HEENT - pupils equal, reactive, sclerae anicteric, neck supple, no nuchal rigidity, poor dentition CV - regular S1, S2, no murmurs. Tachycardic Chest - clear b/l, good air entry, no wheezes. Protecting airway Abdomen - soft, non-tender, non-distended, BS present Skin - no rashes, some track calle Extremities - warm and well perfused, no edema, + peripheral pulses, no clubbing Neuro -Sedated from Ativan, mumbles few words, able to say his name. Moving all 4 extremities requiring restraints for safety A/P Assessment and Plan ASSESSMENT 1. Cardiac arrest requiring brief episode of CPR, with successful ROSC after Narcan 2. Alcohol, drug withdrawal 3. Drug overdose likely leading to # 1 4. Alcohol, drug intoxication on admission 5. Acute respiratory failure due to inability to protect the airway, now extubated 6. Hypokalemia 7. Elevated transaminases likely secondary to alcohol abuse 8. Thrombocytopenia most likely from alcohol abuse, HIT unlikely PLAN:: 1. Follow [facility] protocol for severe alcohol and drug withdrawal. Continue scheduled Librium 25 mg every 6 hours 2. Extubated maintaining oxygen saturation. DuoNeb every 6 hours as needed 3. Start Precedex if needed, not requiring at this point 4. Echocardiogram, nl EF, no vegetations 5. Continue Vanc, ID consulted for staph aureus and staph hemolyticus bacteremia. Repeat blood cultures 6. Monitor urine output 7. Replete electrolytes per protocol 8. Acute hepatitis profile and HIV testing. Hep C reactive 9. GI/DVT prophylaxis 10. Thiamine and folic acid 11. DC Lovenox due to thrombocytopenia I spent 30 minutes of providing critical care time, excluding procedures, managing fluids, alcohol withdrawal, reviewing data, ordering labs, discussing with nursing staff. patient remains critically ill but stable respiratory cota improving now with severe withdrawal, and staph aureus, hemolyticus bacteremia Alex Marie MD Nov 27, 2017 11:38
[2017-11-27] MEDS: SODIUM CHLORIDE 0.9% FLUSH 10 ML FLUSH IV FLUSH PRN ×2 (12:56→15:26)
[2017-11-27] MEDS ORDERED: PHARMACY ORDERED LAB ONE (16:45)
--- NOTE | 2017-11-27 17:33 | MB ---
cc: KANE SON MD DATE OF CONSULTATION: 11/27/2017. REASON FOR CONSULTATION: Bacteremia with Staph aureus and haemolyticus. REQUESTING PHYSICIAN: Dr. Marie. HISTORY OF PRESENT ILLNESS: This is a 47-year-old white male who was brought to the emergency department after being found unresponsive [place] station area. The patient apparently lives on the streets. He is noted to have a history of IV drug use. The patient was unresponsive and he was intubated in the emergency department. He was subsequently extubated on 11/25. He was brought to the emergency department on 11/24. The patient is noted to have alcohol withdrawal symptoms. On admission, he had a very high alcohol level of 322. His toxicology screen was positive for opiates and benzodiazepines. He was afebrile on admission and then had low grade fever after admission. The white blood cell count was normal. Blood cultures were taken on admission and one of four bottles has Staph aureus and another of the four bottles has Staph haemolyticus. The patient is confused currently. He is rambling on but not directly answering questions. He does sometimes make sense when he talks. When asked about drug, he admits to using drugs and the note states that he uses IV heroin. His platelet count is decreasing. The platelet count on admission was 224,000 and today it is 72,000. His peripheral blood count is 8.7. However, the differential shows 13% bands. Urine culture has no growth. Chest x-ray showed clear lungs. He is currently on room air. The patient has diarrhea. I am unable to elicit any other symptoms from him. I asked him to open his eyes for examination but he does not do so. He tells me that if he opens his eyes, he will close them back again but he does not open the eyes. PAST MEDICAL HISTORY: Unobtainable. The patient is not cooperating with questions. PAST SURGICAL HISTORY: Unobtainable. ALLERGIES: Unobtainable. MEDICATIONS: 1. Vancomycin. 2. Librium. 3. Ativan. 4. Pepcid. 5. Folic acid. 6. Thiamine. FAMILY HISTORY: Unknown. SOCIAL HISTORY: Unable to obtain. Alcohol history unable to obtain. Substance abuse - the patient admits to using IV heroin. REVIEW OF SYSTEMS: Unable to obtain. PHYSICAL EXAMINATION: GENERAL: This is a slender male who appears disheveled. He appears poorly nourished. He is awake but confused. VITAL SIGNS: Temperature 98.2, blood pressure 125/85, heart rate 79. HEAD, EYES, EARS, NOSE, THROAT: The head is atraumatic. Extraocular movements cannot be evaluated since the patient does not cooperate at this time. The oropharynx mucosa appears dry. His teeth are in a very poor state of disrepair and he has several missing teeth. NECK: The neck is supple without adenopathy or swelling. LUNGS: The lungs have decreased clear breath sounds. HEART: Regular S1 and S2. No audible murmurs, rubs or gallops. ABDOMEN: Bowel sounds present, flat, soft, no tenderness appreciated. RECTAL: Not performed. EXTREMITIES: No clubbing or cyanosis or edema. The patient has dried peeling skin at the plantar aspects of the feet. He has several calluses at the fingers of the hands. SKIN: No diffuse rash. NEUROLOGIC: Unable to asses. PSYCHIATRIC: Unable to assess. LABORATORY DATA: WBC 8.7, platelets 72,000, hemoglobin 14.9, 71% neutrophils, 13% bands. Creatinine 0.71, BUN 9, sodium 143, AST 62, ALT 63, alkaline phosphatase 56. Hepatitis C reactive. IMAGING STUDIES: Head CT showed no acute findings. IMPRESSION: 1. Bacteremia due to Staph aureus / Staph haemolyticus. 2. IV drug abuse. 3. Altered mental status. The patient continues to be confused and difficult to get him to communicate, although he is talking constantly. His speech appears garbled and sometimes difficult to understand. The positive blood culture is very likely due to the IV drug use. He may have introduced bacteria into the blood stream through the process of injecting IV drugs. A 2-D echocardiogram was performed and does not show vegetation of the heart valves. RECOMMENDATIONS: 1. Continue Vancomycin. 2. Repeat the blood cultures. 3. Monitor the platelet count since the platelets have dropped. 4. Monitor the clinical status. If his platelets continue to drop, we may want to substitute the vancomycin for another antibiotic since vancomycin sometimes can have adverse effects on the platelet count. Thank you this consultation. I will follow the patient's progress with you and make further recommendations upon followup. The altered mental status could also be related to his alcohol withdrawal and positive drug withdrawal as well. Kane Son MD FD/RONAL /4:56 PM /5:14 PM
[2017-11-28] VITALS (16 sets, daily range): BP systolic 122–150; BP diastolic 78–98; PULSE 48–107; RESP 23–36; TEMP 99.5–101.5; O2SAT 89–96
[2017-11-28] MEDS: LORazepam 2 MG/ML VIAL IV PUSH PRN ×7 (00:38→19:32)
[2017-11-28] MEDS: RESP: ALBUTEROL 2.5 MG/IPRATROPIUM 0.5 MG NEB (SCH) INH ×4 (03:35→20:37)
[2017-11-28] MEDS: chlordiazePOXIDE 25 MG CAP PO SCH ×4 (03:55→23:00)
[2017-11-28] MEDS: CHLORHEXIDINE GLUCONATE 2 % 1 PACK (2 CLOTHS) TOP SCH (04:29)
[2017-11-28] MEDS: VANCOMYCIN INJ 1,250 MG in SODIUM CHLOR 0.9% 250 ML INJ 250 ML IV SCH ×2 (04:34→18:33)
[2017-11-28 05:23] LABS: AUTOMATED NEUTROPHIL # 4.3 TH/MM3 (1.8-7.7); BASOPHIL % 0.3 % (0.0-2.0); EOSINOPHIL # 0.1 TH/MM3 (0-0.4); EOSINOPHIL % 0.9 % (0.0-4.0); HEMATOCRIT 38.2 % (39.0-51.0); HEMOGLOBIN 13.6 GM/DL (13.0-17.0); LYMPH % 17.6 % (9.0-44.0); LYMPHOCYTE # 1.1 TH/MM3 (1.0-4.8); MEAN CELL VOLUME 99.5 FL (80.0-100.0); MEAN CORPUSCULAR HEMOGLOBIN 35.3 PG (27.0-34.0); MEAN CORPUSCULAR HGB CONC 35.5 % (32.0-36.0); MEAN PLATELET VOLUME 8.9 FL (7.0-11.0); MONO % 10.1 % (0.0-8.0); MONOCYTE # 0.6 TH/MM3 (0-0.9); NEUT % 71.1 % (16.0-70.0); PLATELET COUNT 84 TH/MM3 (150-450); RED BLOOD COUNT 3.84 MIL/MM3 (4.50-5.90); RED CELL DISTRIBUTION WIDTH 12.6 % (11.6-17.2)
[2017-11-28 05:59] LABS: ALBUMIN 3.2 GM/DL (3.4-5.0); ALKALINE PHOSPHATASE 50 U/L (45-117); ALT (GPT) 44 U/L (12-78); AST (GOT) 60 U/L (15-37); BICARBONATE 25.5 MEQ/L (21.0-32.0); BLOOD UREA NITROGEN 12 MG/DL (7-18); CALCIUM 8.6 MG/DL (8.5-10.1); CHLORIDE 110 MEQ/L (98-107); CREATININE 0.71 MG/DL (0.60-1.30); GLOMERULAR FILTRATION RATE 120 ML/MIN (>89); GLUCOSE,RANDOM 94 MG/DL (74-106); MAGNESIUM 1.9 MG/DL (1.5-2.5); SODIUM (NA) 143 MEQ/L (136-145); TOTAL BILIRUBIN ADULT 1.1 MG/DL (0.2-1.0)
--- NOTE | 2017-11-28 06:07 | RADRPT ---
EXAM DATE/TIME: 11/28/2017 04:16 [place] COMPARISON: CHEST SINGLE AP, November 25, 2017, 5:39. INDICATIONS : Shortness of breath, possible pulmonary disease. MEDICAL HISTORY : None. SURGICAL HISTORY : None. ENCOUNTER: Subsequent ACUITY: 4 - 6 days PAIN SCORE: Non-responsive. LOCATION: Bilateral chest FINDINGS: Patient has been extubated with NG tube removed. A minimal airspace disease in the right lower lung z one. Cardiomediastinal contours are within normal limits. Bony thorax is intact. CONCLUSION: 1. Minimal airspace disease in the right lower lung zone status post extubation, presumably atelectas is. Brady Dent MD on November 28, 2017 at 6:05 Board Certified Radiologist. This report was verified electronically.
[2017-11-28] MEDS: CHLORHEXIDINE 0.12% (ORAL KIT) 15 ML CUP MT SCH ×2 (08:00→19:32)
--- NOTE | 2017-11-28 08:42 | HHI.CCPN ---
Subjective Remarks/Hospital Course Middle-aged gentleman with unknown past medical history was [place] un[place]. History is limited, no family or friends at bedside, obtained entirely from ED chart. By standards present at that time told EMS that patient is a known drug user. On EMS arrival patient had no pulse CPR was briefly initiated and after a dose of Narcan patient regained pulse and blood pressure. Upon ED arrival patient remained unresponsive but with good blood pressure and good pulse. He was immediately intubated by ED physician without using any drugs and he was noticed gagging on the ET tube therefore he was started on propofol for sedation. He received 1 L normal saline bolus. He underwent a CT head which did not show any acute pathology. [facility] service now consulted for ICU admission. Patient was seen in ER , on sedation, unresponsive. SUBJ 11/25: Patient remains intubated sedated with propofol. Gets agitated on sedation hold but tolerate CPAP. Chest x-ray clear. Plan for weaning to extubation 11/26: Extubated yesterday currently in severe alcohol and drug withdrawal in four-point restraints for patient's safety. Receiving Ativan per CIWA protocol. We will start scheduled Librium 25 mg every 6 hours 11/27: Sedated from receiving Ativan per CIWA protocol. Able to say his name otherwise remained sedated. Asked RN to remove LE restraints 11/28: Remains heavily sedated due to severe agitation overnight. Apparently per RN received 18 mg of Ativan last 12 hours. I will discontinue CIWA protocol and start on Precedex with as needed Ativan. Continue scheduled Librium Objective Vital Signs Date Time Temp Pulse Resp B/P (MAP) Pulse Ox O2 Delivery O2 Flow Rate FiO2 11/28/17 06:00 83 11/28/17 04:00 100.8 32 148/90 (109) 92 11/27/17 20:31 21 11/27/17 07:46 Nasal Cannula 2.00 Intake and Output 11/28/17 11/28/17 11/29/17 08:00 16:00 00:00 Intake Total 280 ml Output Total 300 ml Balance -20 ml Result Diagram: 11/28/17 0450 11/28/17 0450 Imaging Last Impressions Chest X-Ray 11/24/17 0000 Signed Impressions: Service Date/Time: November 15:02 - CONCLUSION: ET tube in good position. The lungs are clear. Kev Deshpande MD Objective Remarks General -middle-aged gentleman, disheveled, agitated in four-point restraints, now heavily sedated HEENT - pupils equal, reactive, sclerae anicteric, neck supple, no nuchal rigidity, poor dentition CV - regular S1, S2, no murmurs. Tachycardic Chest - clear b/l, good air entry, no wheezes. Protecting airway Abdomen - soft, non-tender, non-distended, BS present Skin - no rashes, some track calle Extremities - warm and well perfused, no edema, + peripheral pulses, no clubbing Neuro -Sedated from Ativan, mumbles few words, heavily sedated now. Moving all 4 extremities requiring restraints for safety A/P Assessment and Plan ASSESSMENT 1. Cardiac arrest requiring brief episode of CPR, with successful ROSC after Narcan 2. Severe Alcohol, drug withdrawal 3. Drug overdose likely leading to # 1 4. Alcohol, drug intoxication on admission 5. Acute respiratory failure due to inability to protect the airway, now extubated 6. Hypokalemia 7. Elevated transaminases likely secondary to alcohol abuse 8. Thrombocytopenia most likely from alcohol abuse, HIT unlikely 9. Bacteremia with staph aureus and staph hemolyticus PLAN:: -Heavily sedated CIWA protocol for severe alcohol and drug withdrawal. -Discontinue CIWA, start Precedex, use as needed Ativan IV for seizures and breakthrough agitation -Continue scheduled Librium 25 mg every 6 hours -Extubated maintaining oxygen saturation. DuoNeb every 6 hours as needed -Echocardiogram, nl EF, no vegetations -Continue Vanc, ID consulted for staph aureus and staph hemolyticus bacteremia. Bacteremia most likely secondary to IV drug use -Monitor urine output -Replete electrolytes per protocol -Hep C reactive -GI/DVT prophylaxis -Thiamine and folic acid -DCd Lovenox due to thrombocytopenia I spent 30 minutes of providing critical care time, excluding procedures, managing fluids, alcohol withdrawal, reviewing data, ordering labs, discussing with nursing staff. patient remains critically ill with severe uncontrolled withdrawal, and staph aureus, hemolyticus bacteremia Alex Marie MD Nov 28, 2017 08:42
[2017-11-28 09:43] LABS: BANDS 14 % (0-6); BASOPHILS 1 % (0-2); LYMPHOCYTES 13 % (9-44); MONOCYTES 4 % (0-8); NEUTROPHIL # MANUAL DIFF 4.9 TH/MM3 (1.8-7.7); POLYS (SEG NEUTROPHILS) 68 % (16-70)
[2017-11-28] MEDS ORDERED: RASS Change Order XX ONE (09:45)
[2017-11-28] MEDS: FOLIC ACID 1 MG TAB PO SCH (12:21)
[2017-11-28] MEDS: THIAMINE INJ 100 MG in SODIUM CHLORIDE 0.9% INJ 100 ML IV SCH (12:21)
[2017-11-28] MEDS: FAMOTIDINE 20 MG/2 ML VIAL IV PUSH SCH ×2 (12:21→19:31)
[2017-11-28] MEDS: SODIUM CHLORIDE 0.9% FLUSH 10 ML FLUSH IV FLUSH SCH ×2 (12:21→19:31)
[2017-11-28] MEDS ORDERED: ICU - D/C ICU ELECTROLYTE ORDERS PRN (12:45)
[2017-11-28] MEDS ORDERED: ICU - POTASSIUM PHOSPHATE MONOBASIC 500 MG TAB PO PRN (12:45)
[2017-11-28] MEDS ORDERED: ICU - MAGNESIUM SULFATE 2 GM/NS 100 ML IV PRN ×2 (12:45)
[2017-11-28] MEDS ORDERED: ICU - SODIUM PHOSPHATE 30 MMOL/NS 250 ML IV PRN ×2 (12:45)
[2017-11-28] MEDS ORDERED: ICU - POTASSIUM CHLORIDE/AQUEOUS SOLN 40 MEQ/100 ML IVPB IV PRN (12:45)
[2017-11-28] MEDS ORDERED: ICU - CALL ORDERING PHYSICIAN PRN (12:45)
[2017-11-28] MEDS ORDERED: POTASSIUM CHLORIDE 25 MEQ EFFERVESCENT TAB PO PRN (12:45)
[2017-11-28] MEDS ORDERED: ICU - MAGNESIUM SULFATE 4 GM/NS 100 ML IV PRN ×2 (12:45)
[2017-11-28] MEDS ORDERED: ICU - MAGNESIUM OXIDE 400 MG TAB PO PRN (12:45)
[2017-11-28] MEDS ORDERED: ICU - POTASSIUM PHOSPHATE 30 MMOL/NS 250 ML IV PRN ×2 (12:45)
[2017-11-28] MEDS: ICU - POTASSIUM CHLORIDE/AQUEOUS SOLN 20 MEQ/100 ML IVPB IV PRN ×3 (13:44→18:33)
[2017-11-28] MEDS ORDERED: PHARMACY ORDERED LAB ONE (16:45)
--- NOTE | 2017-11-28 17:22 | HHI.IDPN ---
Note Infectious Disease Note Patient is constantly talking, rambling on and not answering questions. Low grade fever. In restraints. On RA. 47-year-old white male who was brought to the emergency department after being found unresponsive at a gas station. The patient apparently lives on the streets. He is noted to have a history of IV drug use. The patient was unresponsive and he was intubated in the emergency department. MEDICATIONS: 1. Vancomycin. Current Medications Medications (Trade) Dose Ordered Sig/Elvis Route PRN Reason Start Time Stop Time Status Last Admin Dose Admin Thiamine HCl 100 mg/Sodium Chloride 101 ml @ 101 mls/hr DAILY IV 11/24/17 17:00 11/28/17 12:21 Famotidine (Pepcid Inj) 20 mg Q12HR IV PUSH 11/24/17 21:00 11/28/17 12:21 Miscellaneous Information 1 Q361D XX 11/24/17 16:00 11/24/17 19:00 Chlorhexidine Gluconate (Chlorhexidine 2% Cloth) 3 pack Taper DAILY@04 TOP 11/25/17 04:00 11/21/18 03:59 11/28/17 04:29 Chlorhexidine Gluconate (Chlorhexidine 2% Cloth) 3 pack UNSCH PRN TOP HYGIENIC CARE 11/24/17 16:00 Chlorhexidine Gluconate (Peridex 0.12% Liq) 15 ml BID@08,20 MT 11/24/17 20:00 11/27/17 20:00 Folic Acid (Folate) 1 mg DAILY PO 11/24/17 20:00 11/28/17 12:21 Sodium Chloride (NS Flush) 2 ml UNSCH PRN IV FLUSH FLUSH AFTER USING IV ACCESS 11/25/17 11:00 11/27/17 15:26 Sodium Chloride (NS Flush) 2 ml BID IV FLUSH 11/25/17 21:00 11/28/17 12:21 Flumazenil (Romazicon Inj) 0.2 mg Q1M PRN IV PUSH SEE LABEL COMMENTS 11/25/17 11:00 Vancomycin HCl 1250 mg/Sodium Chloride 262.5 ml @ 262.5 mls/ hr Q12H IV 11/25/17 17:00 11/28/17 04:34 Pharmacy Profile Note 0 ml @ 0 mls/hr UNSCH OTHER 11/25/17 15:45 Chlordiazepoxide (Librium) 25 mg Q6H PO 11/26/17 11:00 11/28/17 17:00 Albuterol/ Ipratropium (Duoneb Neb) 1 ampule Q6HR NEB INH 11/28/17 10:00 11/28/17 16:05 Dexmedetomidine HCl 200 mcg/ Sodium Chloride 52 ml @ 3.64 mls/hr TITRATE PRN IV SEDATION 11/28/17 09:15 Lorazepam (Ativan Inj) 1 mg Q2H PRN IV PUSH AGITATION, SEIZURE 11/28/17 09:15 Miscellaneous Information D/C ICU ELECTROLYTE ORDERS... UNSCH PRN .XX SEE DOSE INSTRUCTIONS 11/28/17 12:45 Miscellaneous Information ICU - CALL ORDERING PHYSIC... UNSCH PRN .XX SEE DOSE INSTRUCTIONS 11/28/17 12:45 Potassium Chloride 100 ml @ 25 mls/hr UNSCH PRN IV ELECTROLYTE REPLACEMENT 11/28/17 12:45 Potassium Bicarb/ Potassium Chloride (K-Lyte Cl Eff) 50 meq UNSCH PRN PO ELECTROLYTE REPLACEMENT 11/28/17 12:45 Potassium Chloride 100 ml @ 50 mls/hr UNSCH PRN IV ELECTROLYTE REPLACEMENT 11/28/17 12:45 11/28/17 16:46 Magnesium Sulfate 4 gm/Sodium Chloride 108 ml @ 54 mls/hr UNSCH PRN IV ELECTROLYTE REPLACEMENT 11/28/17 12:45 Magnesium Sulfate 2 gm/Sodium Chloride 104 ml @ 52 mls/hr UNSCH PRN IV ELECTROLYTE REPLACEMENT 11/28/17 12:45 Magnesium Oxide (Mag-Ox) 800 mg UNSCH PRN PO ELECTROLYTE REPLACEMENT 11/28/17 12:45 Sodium Phosphate 30 mmol/Sodium Chloride 260 ml @ 43.333 mls/ hr UNSCH PRN IV ELECTROLYTE REPLACEMENT 11/28/17 12:45 Potassium Phosphate (K-Phos) 2,000 mg UNSCH PRN PO ELECTROLYTE REPLACEMENT 11/28/17 12:45 Potassium Phosphate 30 mmol/ Sodium Chloride 260 ml @ 43.333 mls/ hr UNSCH PRN IV ELECTROLYTE REPLACEMENT 11/28/17 12:45 OBJECTIVE: Vital Signs Date Time Temp Pulse Resp B/P (MAP) Pulse Ox O2 Delivery O2 Flow Rate FiO2 11/28/17 16:00 100.9 73 30 146/98 (114) 96 11/28/17 16:00 73 11/28/17 14:00 75 11/28/17 12:00 99.6 81 28 147/95 (112) 96 11/28/17 12:00 81 11/28/17 10:12 96 Nasal Cannula 1.50 11/28/17 10:00 68 11/28/17 08:00 78 11/28/17 08:00 99.5 78 36 122/78 (93) 89 11/28/17 06:00 83 11/28/17 05:00 79 11/28/17 04:00 79 11/28/17 04:00 100.8 84 32 148/90 (109) 92 11/28/17 03:00 78 11/28/17 02:00 68 11/28/17 00:00 100.0 72 23 135/95 (108) 96 11/28/17 00:00 84 11/27/17 23:00 72 11/27/17 22:00 84 11/27/17 21:00 92 11/27/17 20:31 96 21 11/27/17 20:00 100.2 65 24 121/84 (96) 100 11/27/17 20:00 70 11/27/17 19:00 70 11/27/17 18:00 70 27 135/93 (107) 99 11/27/17 18:00 70 Laboratory Tests Test 11/28/17 04:50 White Blood Count 6.0 TH/MM3 Red Blood Count 3.84 MIL/MM3 Hemoglobin 13.6 GM/DL Hematocrit 38.2 % Mean Corpuscular Volume 99.5 FL Mean Corpuscular Hemoglobin 35.3 PG Mean Corpuscular Hemoglobin Concent 35.5 % Red Cell Distribution Width 12.6 % Platelet Count 84 TH/MM3 Mean Platelet Volume 8.9 FL Neutrophils (%) (Auto) 71.1 % Lymphocytes (%) (Auto) 17.6 % Monocytes (%) (Auto) 10.1 % Eosinophils (%) (Auto) 0.9 % Basophils (%) (Auto) 0.3 % Neutrophils # (Auto) 4.3 TH/MM3 Lymphocytes # (Auto) 1.1 TH/MM3 Monocytes # (Auto) 0.6 TH/MM3 Eosinophils # (Auto) 0.1 TH/MM3 Basophils # (Auto) 0.0 TH/MM3 CBC Comment AUTO DIFF Differential Total Cells Counted 100 Neutrophils % (Manual) 68 % Band Neutrophils % 14 % Lymphocytes % 13 % Monocytes % 4 % Basophils % 1 % Neutrophils # (Manual) 4.9 TH/MM3 Differential Comment FINAL DIFF MANUAL Platelet Estimate RARE Platelet Morphology Comment NORMAL Blood Urea Nitrogen 12 MG/DL Creatinine 0.71 MG/DL Random Glucose 94 MG/DL Total Protein 7.0 GM/DL Albumin 3.2 GM/DL Calcium Level 8.6 MG/DL Magnesium Level 1.9 MG/DL Alkaline Phosphatase 50 U/L Aspartate Amino Transf (AST/SGOT) 60 U/L Alanine Aminotransferase (ALT/SGPT) 44 U/L Total Bilirubin 1.1 MG/DL Sodium Level 143 MEQ/L Potassium Level 3.1 MEQ/L Chloride Level 110 MEQ/L Carbon Dioxide Level 25.5 MEQ/L Anion Gap 8 MEQ/L Estimat Glomerular Filtration Rate 120 ML/MIN IMAGING: Chest X-Ray 11/28/17 0600 Signed Impressions: Service Date/Time: Tuesday, November 28, 2017 04:16 - CONCLUSION: 1. Minimal airspace disease in the right lower lung zone status post extubation, presumably atelectasis. Brady Dent MD Head CT 11/24/17 0000 Signed Impressions: Service Date/Time: November 16:05 - CONCLUSION: No acute findings in the brain. No evidence of acute hemorrhage. Kev Deshpande MD PHYSICAL EXAMINATION: GENERAL: Awake and confused. HEAD, EYES, EARS, NOSE, THROAT: The head is atraumatic. Extraocular movements cannot be evaluated since the patient does not cooperate at this time. The oropharynx mucosa appears dry. His teeth are in a very poor state of disrepair and he has several missing teeth. NECK: The neck is supple without adenopathy or swelling. LUNGS: Decreased clear breath sounds. HEART: Regular S1 and S2. No audible murmurs, rubs or gallops. ABDOMEN: Bowel sounds present, flat, soft, no tenderness appreciated. EXTREMITIES: No clubbing or cyanosis or edema. The patient has dried peeling skin at the plantar aspects of the feet. He has several calluses at the fingers of the hands. SKIN: No diffuse rash. NEUROLOGIC: Unable to asses. PSYCHIATRIC: Unable to assess. IMPRESSION: 1. Bacteremia due to Staph aureus / Staph haemolyticus. 2. IV drug abuse. 3. Altered mental status. The patient continues to be confused and difficult to get him to communicate, although he is talking constantly. His speech is garbled and sometimes difficult to understand. The positive blood culture is very likely due to the IV drug use. He may have introduced bacteria into the blood stream through the process of injecting IV drugs. A 2-D echocardiogram was performed and does not show vegetation of the heart valves. RECOMMENDATIONS: 1. Continue Vancomycin. 2. Repeat the blood cultures. 3. Monitor the platelet count since the platelets have dropped. 4. Monitor the clinical status. Trace Soto MD Nov 28, 2017 17:22
[2017-11-28] MEDS: DEXMEDETOMIDINE INJ 200 MCG in SODIUM CHLORIDE 0.9% INJ 50 ML IV PRN ×2 (19:33→20:54)
[2017-11-29] VITALS (15 sets, daily range): BP systolic 119–146; BP diastolic 69–94; PULSE 39–88; RESP 23–32; TEMP 98.2–99.3; O2SAT 87–100
[2017-11-29] MEDS: RESP: ALBUTEROL 2.5 MG/IPRATROPIUM 0.5 MG NEB (SCH) INH ×4 (03:44→20:15)
[2017-11-29] MEDS: VANCOMYCIN INJ 1,250 MG in SODIUM CHLOR 0.9% 250 ML INJ 250 ML IV SCH ×3 (03:54→18:17)
[2017-11-29] MEDS: chlordiazePOXIDE 25 MG CAP PO SCH ×4 (03:55→21:44)
[2017-11-29] MEDS: CHLORHEXIDINE GLUCONATE 2 % 1 PACK (2 CLOTHS) TOP SCH (04:00)
[2017-11-29 04:29] LABS: MAGNESIUM 1.9 MG/DL (1.5-2.5)
[2017-11-29] MEDS: LORazepam 2 MG/ML VIAL IV PUSH PRN ×3 (06:24→17:33)
[2017-11-29] MEDS: FAMOTIDINE 20 MG/2 ML VIAL IV PUSH SCH (07:58)
[2017-11-29] MEDS: FOLIC ACID 1 MG TAB PO SCH (07:58)
[2017-11-29] MEDS: SODIUM CHLORIDE 0.9% FLUSH 10 ML FLUSH IV FLUSH SCH ×2 (07:59→21:45)
[2017-11-29] MEDS: CHLORHEXIDINE 0.12% (ORAL KIT) 15 ML CUP MT SCH ×2 (07:59→21:45)
[2017-11-29] MEDS: THIAMINE INJ 100 MG in SODIUM CHLORIDE 0.9% INJ 100 ML IV SCH (07:59)
[2017-11-29] MEDS: ICU - POTASSIUM CHLORIDE/AQUEOUS SOLN 20 MEQ/100 ML IVPB IV PRN ×2 (07:59→13:25)
[2017-11-29] MEDS ORDERED: PHARMACY ORDERED LAB ONE (09:45)
[2017-11-29] MEDS: DEXMEDETOMIDINE INJ 200 MCG in SODIUM CHLORIDE 0.9% INJ 50 ML IV PRN (11:50)
[2017-11-29] MEDS ORDERED: RESP: ALBUTEROL 2.5 MG/3 ML NEB (PRN) NEB (12:30)
[2017-11-29] MEDS ORDERED: PILL SPLITTER OTHER PRN (12:30)
[2017-11-29] MEDS ORDERED: LORazepam 2 MG/ML VIAL IV PUSH PRN (12:30)
--- NOTE | 2017-11-29 12:32 | HHI.CCPN ---
Subjective Remarks/Hospital Course Middle-aged gentleman with unknown past medical history was [place] unresponsive. History is limited, no family or friends at bedside, obtained entirely from ED chart. By standards present at that time told EMS that patient is a known drug user. On EMS arrival patient had no pulse CPR was briefly initiated and after a dose of Narcan patient regained pulse and blood pressure. Upon ED arrival patient remained unresponsive but with good blood pressure and good pulse. He was immediately intubated by ED physician without using any drugs and he was noticed gagging on the ET tube therefore he was started on propofol for sedation. He received 1 L normal saline bolus. He underwent a CT head which did not show any acute pathology. [facility] service now consulted for ICU admission. Patient was seen in ER , on sedation, unresponsive. 11/25: Patient remains intubated sedated with propofol. Gets agitated on sedation hold but tolerate CPAP. Chest x-ray clear. Plan for weaning to extubation 11/26: Extubated yesterday currently in severe alcohol and drug withdrawal in four-point restraints for patient's safety. Receiving Ativan per CIWA protocol. We will start scheduled Librium 25 mg every 6 hours 11/27: Sedated from receiving Ativan per CIWA protocol. Able to say his name otherwise remained sedated. Asked RN to remove LE restraints 11/28: Remains heavily sedated due to severe agitation overnight. Apparently per RN received 18 mg of Ativan last 12 hours. I will discontinue CIWA protocol and start on Precedex with as needed Ativan. Continue scheduled Librium Subjective 11/29: Bradycardic on dexmedetomidine drip. Extremely agitated. Second episode overnight where patient received too much lorazepam became obtunded. Objective Vital Signs Date Time Temp Pulse Resp B/P (MAP) Pulse Ox O2 Delivery O2 Flow Rate FiO2 11/29/17 09:01 100 21 11/29/17 08:00 99.3 65 23 146/94 (111) 11/28/17 20:38 Nasal Cannula 2.00 Intake and Output 11/29/17 11/29/17 11/30/17 08:00 16:00 00:00 Intake Total 1130.0 ml Output Total 350 ml Balance 780.0 ml Result Diagram: 11/28/17 0450 11/29/17 0355 Other Results Microbiology Date/Time Source Procedure Growth Status 11/27/17 19:30 Blood Peripheral Aerobic Blood Culture - Preliminary NO GROWTH IN 2 DAYS Resulted 11/27/17 19:30 Blood Peripheral Anaerobic Blood Culture - Preliminary NO GROWTH IN 2 DAYS Resulted 11/24/17 14:20 Urine Catheterized Urine Urine Culture - Final NO GROWTH IN 48 HOURS. Complete Imaging Last Impressions Chest X-Ray 11/28/17 0600 Signed Impressions: Service Date/Time: Tuesday, November 28, 2017 04:16 - CONCLUSION: 1. Minimal airspace disease in the right lower lung zone status post extubation, presumably atelectasis. Brady Dent MD Head CT 11/24/17 0000 Signed Impressions: Service Date/Time: November 16:05 - CONCLUSION: No acute findings in the brain. No evidence of acute hemorrhage. Kev Deshpande MD Objective Remarks General -47-year-old male currently in four-point restraints on dexmedetomidine drip HEENT - pupils equal, reactive, sclerae anicteric, neck supple, no nuchal rigidity, poor dentition CV - regular S1, S2, no murmurs. Tachycardic Chest - clear b/l, good air entry, no wheezes. Protecting airway Abdomen - soft, non-tender, non-distended, BS present Skin - no rashes, some track calle Extremities - warm and well perfused, no edema, + peripheral pulses, no clubbing Neuro -Sedated from Ativan, mumbles few words, heavily sedated now. Moving all 4 extremities requiring restraints for safety Urinary Catheter: No Assessment to: Continue A/P Assessment and Plan Neuro/Psych: EtOH abuse currently going through DTs Currently on dexmedetomidine drip at 0.3 mg/kg/min to maintain RASS of 0 Chlordiazepoxide 50 mg p.o. every 6 hours Phenobarbital 90 mg p.o. every 8 hours 5 dosages As needed lorazepam 1 mg IV every 2 hours as needed breakthrough agitation Thiamine 100 mg IV daily, folic acid 1 mg p.o. daily multivitamin 1 tablet p.o. daily Today ordered CT brain/EEG. CT brain 11/24 no acute intracranial findings Urine tox screen on admission revealed EtOH level 322. Positive opiates and benzos UDS CV: Sinus bradycardia Most likely secondary dexmedetomidine drip. We will weaned off Currently on normal saline at 100 cc an hour Check TSH in a.m. Resp: Acute respiratory insufficiency Nasal cannula to maintain saturations greater than equal to 92% Incentive spirometry while awake Albuterol/ipratropium aerosols every 6 hours with albuterol aerosols every 2 hours as needed dyspnea GI: Elevated AST Hypoalbuminemia Hepatitis C positive Currently n.p.o. Speech therapy evaluate and treat Pantoprazole 40 mg IV daily for GI prophylaxis Docusate sodium/senna 1 tablet twice daily for bowel regimen Check hepatitis C genotype and viral load : Patient currently has a condom catheter Endo: Sliding scale insulin with Novulin R low regimen with Accu-Cheks every 6 hours to maintain euglycemia Check TSH in a.m. Renal: Creatinine currently within normal limits Monitor urine output Accurate I's and O's Heme: Thrombocytopenia Follow-up CBC in a.m. 11/30 ID: MRSA/staph hemolyticus bacteremia Currently vancomycin per infectious disease Microbiology 11/27 -blood cultures 2 -no growth 11/24 -blood cultures 2 -MRSA/staph hemolyticus FEN: Replace electrolytes as clinically indicated per ICU electrolyte protocol MSK: PT/OT evaluate and treat Access -Utilize peripheral IV. Central line if indicated Prophylaxis -GI -pantoprazole -DVT -SCDs/holding pharmacological prophylaxis in light of thrombocytopenia Level 2 follow-up Israel Mac MD Nov 29, 2017 12:32
[2017-11-29] MEDS ORDERED: GLYCERIN ADULT 2 GM SUPP RECTAL ONE (16:00)
[2017-11-29] MEDS: PANTOPRAZOLE SODIUM 40 MG VIAL IV PUSH SCH (16:06)
[2017-11-29] MEDS: SODIUM CHLOR 0.9% 1000 ML INJ 1,000 ML IV SCH (16:06)
[2017-11-29] MEDS: HALOPERIDOL LACTATE 5 MG/ML AMP IV PUSH PRN ×2 (16:08→19:50)
[2017-11-29 16:48] LABS: HEMATOCRIT 38.1 % (39.0-51.0); HEMOGLOBIN 13.4 GM/DL (13.0-17.0); MEAN CELL VOLUME 100.1 FL (80.0-100.0); MEAN CORPUSCULAR HEMOGLOBIN 35.2 PG (27.0-34.0); MEAN CORPUSCULAR HGB CONC 35.2 % (32.0-36.0); MEAN PLATELET VOLUME 8.2 FL (7.0-11.0); PLATELET COUNT 94 TH/MM3 (150-450); RED BLOOD COUNT 3.81 MIL/MM3 (4.50-5.90); RED CELL DISTRIBUTION WIDTH 12.6 % (11.6-17.2); WHITE BLOOD COUNT 5.6 TH/MM3 (4.0-11.0)
[2017-11-29 17:10] LABS: BICARBONATE 23.1 MEQ/L (21.0-32.0); CALCIUM 8.4 MG/DL (8.5-10.1); CREATININE 0.61 MG/DL (0.60-1.30); MAGNESIUM 1.8 MG/DL (1.5-2.5); PHOSPHORUS 3.5 MG/DL (2.5-4.9)
--- NOTE | 2017-11-29 18:07 | RADRPT ---
EXAM DATE/TIME: 11/29/2017 17:46 [facility] COMPARISON: CT BRAIN W/O CONTRAST, November 24, 2017, 16:05. INDICATIONS : Altered mental status. RADIATION DOSE: 41.97 CTDIvol (mGy) ; Patient motion MEDICAL HISTORY : None SURGICAL HISTORY : None. ENCOUNTER: Initial ACUITY: 1 day PAIN SCALE: 0/10 LOCATION: cranial TECHNIQUE: Multiple contiguous axial images were obtained of the head. Using automated exposure control and adj ustment of the mA and/or kV according to patient size, radiation dose was kept as low as reasonably a chievable to obtain optimal diagnostic quality images. DICOM format image data is available electro nically for review and comparison. FINDINGS: Noncontrast axial head CT demonstrates the ventricles to be normal in size and configuration with a n ormal sulcal pattern. No acute intracranial hemorrhage, acute cortical infarction, mass or midline sh ift is seen. Posterior fossa structures are unremarkable. Bone windows are unremarkable. CONCLUSION: No evidence of acute intracranial pathology. No masses are identified. Calvin Ball MD on November 29, 2017 at 18:02 Board Certified Radiologist. This report was verified electronically.
[2017-11-29] MEDS: DOCUSATE SODIUM 50 MG/SENNA 8.6 MG TAB PO SCH (21:00)
[2017-11-30] VITALS (13 sets, daily range): BP systolic 116–136; BP diastolic 71–86; PULSE 49–80; RESP 11–24; TEMP 97.9–98.3; O2SAT 97–100
[2017-11-30] MEDS: HALOPERIDOL LACTATE 5 MG/ML AMP IV PUSH PRN ×3 (01:55→21:24)
[2017-11-30] MEDS: VANCOMYCIN INJ 1,250 MG in SODIUM CHLOR 0.9% 250 ML INJ 250 ML IV SCH ×3 (02:27→17:18)
[2017-11-30] MEDS: RESP: ALBUTEROL 2.5 MG/IPRATROPIUM 0.5 MG NEB (SCH) INH ×4 (03:50→19:42)
[2017-11-30] MEDS: CHLORHEXIDINE GLUCONATE 2 % 1 PACK (2 CLOTHS) TOP SCH (04:00)
[2017-11-30] MEDS: SODIUM CHLOR 0.9% 1000 ML INJ 1,000 ML IV SCH ×2 (04:39→17:22)
--- NOTE | 2017-11-30 05:43 | RADRPT ---
EXAM DATE/TIME: 11/30/2017 04:28 [facility] COMPARISON: CHEST SINGLE AP, November 28, 2017, 4:16. INDICATIONS : Short of breath. MEDICAL HISTORY : None. SURGICAL HISTORY : None. ENCOUNTER: Subsequent ACUITY: 1 week PAIN SCORE: 0/10 LOCATION: Bilateral chest FINDINGS: Improved aeration in the right lower lung zone. Cardiomediastinal contours are within normal limits. Remainder of exam is unchanged. CONCLUSION: 1. Improved right lower lung zone aeration. Brady Dent MD on November 30, 2017 at 5:41 Board Certified Radiologist. This report was verified electronically.
[2017-11-30] MEDS: chlordiazePOXIDE 25 MG CAP PO SCH ×4 (06:23→21:25)
[2017-11-30 07:39] LABS: AUTOMATED NEUTROPHIL # 3.5 TH/MM3 (1.8-7.7); BASOPHIL % 0.4 % (0.0-2.0); EOSINOPHIL # 0.2 TH/MM3 (0-0.4); EOSINOPHIL % 4.1 % (0.0-4.0); HEMATOCRIT 38.2 % (39.0-51.0); HEMOGLOBIN 13.5 GM/DL (13.0-17.0); LYMPH % 20.2 % (9.0-44.0); LYMPHOCYTE # 1.2 TH/MM3 (1.0-4.8); MEAN CELL VOLUME 100.1 FL (80.0-100.0); MEAN CORPUSCULAR HEMOGLOBIN 35.3 PG (27.0-34.0); MEAN CORPUSCULAR HGB CONC 35.3 % (32.0-36.0); MEAN PLATELET VOLUME 8.3 FL (7.0-11.0); MONO % 15.4 % (0.0-8.0); MONOCYTE # 0.9 TH/MM3 (0-0.9); NEUT % 59.9 % (16.0-70.0); PLATELET COUNT 129 TH/MM3 (150-450); RED BLOOD COUNT 3.82 MIL/MM3 (4.50-5.90); RED CELL DISTRIBUTION WIDTH 12.2 % (11.6-17.2); WHITE BLOOD COUNT 5.8 TH/MM3 (4.0-11.0)
[2017-11-30] MEDS: CHLORHEXIDINE 0.12% (ORAL KIT) 15 ML CUP MT SCH ×2 (08:00→21:26)
[2017-11-30 08:10] LABS: ALBUMIN 2.7 GM/DL (3.4-5.0); BICARBONATE 25.2 MEQ/L (21.0-32.0); CALCIUM 7.9 MG/DL (8.5-10.1); CREATININE 0.63 MG/DL (0.60-1.30); DIRECT BILIRUBIN ADULT 0.2 MG/DL (0.0-0.2); MAGNESIUM 1.5 MG/DL (1.5-2.5)
[2017-11-30 08:19] LABS: CHOLESTEROL/ HDL RATIO 3.17 RATIO; HDL CHOLESTEROL 41.3 MG/DL (40.0-60.0); INDIRECT BILIRUBIN 0.7 MG/DL (0.0-0.8); TOTAL BILIRUBIN ADULT 0.9 MG/DL (0.2-1.0); TOTAL PROTEIN 6.2 GM/DL (6.4-8.2)
[2017-11-30] MEDS: DOCUSATE SODIUM 50 MG/SENNA 8.6 MG TAB PO SCH (09:00)
[2017-11-30] MEDS: MULTIVITAMIN TAB PO SCH (09:16)
[2017-11-30] MEDS: FOLIC ACID 1 MG TAB PO SCH (09:16)
[2017-11-30] MEDS: THIAMINE INJ 100 MG in SODIUM CHLORIDE 0.9% INJ 100 ML IV SCH (09:17)
[2017-11-30] MEDS: SODIUM CHLORIDE 0.9% FLUSH 10 ML FLUSH IV FLUSH SCH ×2 (09:17→21:26)
[2017-11-30] MEDS: ICU - POTASSIUM CHLORIDE/AQUEOUS SOLN 20 MEQ/100 ML IVPB IV PRN ×3 (10:27→15:07)
[2017-11-30] MEDS ORDERED: GLUCAGON 1 MG/ML VIAL OTHER PRN (12:15)
[2017-11-30] MEDS ORDERED: DEXTROSE 50% IN WATER 50 ML VIAL(D50) IV PUSH PRN (12:15)
--- NOTE | 2017-11-30 12:20 | HHI.CCPN ---
Subjective Remarks/Hospital Course Middle-aged gentleman with unknown past medical history was [place] the [place] station unresponsive. History is limited, no family or friends at bedside, obtained entirely from ED chart. By standards present at that time told EMS that patient is a known drug user. On EMS arrival patient had no pulse CPR was briefly initiated and after a dose of Narcan patient regained pulse and blood pressure. Upon ED arrival patient remained unresponsive but with good blood pressure and good pulse. He was immediately intubated by ED physician without using any drugs and he was noticed gagging on the ET tube therefore he was started on propofol for sedation. He received 1 L normal saline bolus. He underwent a CT head which did not show any acute pathology. [facility] service now consulted for ICU admission. Patient was seen in ER , on sedation, unresponsive. 11/25: Patient remains intubated sedated with propofol. Gets agitated on sedation hold but tolerate CPAP. Chest x-ray clear. Plan for weaning to extubation 11/26: Extubated yesterday currently in severe alcohol and drug withdrawal in four-point restraints for patient's safety. Receiving Ativan per CIWA protocol. We will start scheduled Librium 25 mg every 6 hours 11/27: Sedated from receiving Ativan per CIWA protocol. Able to say his name otherwise remained sedated. Asked RN to remove LE restraints 11/28: Remains heavily sedated due to severe agitation overnight. Apparently per RN received 18 mg of Ativan last 12 hours. I will discontinue CIWA protocol and start on Precedex with as needed Ativan. Continue scheduled Librium 11/29: Bradycardic on dexmedetomidine drip. Extremely agitated. Second episode overnight where patient received too much lorazepam became obtunded. Subjective 11/30: Afebrile. Currently off dexmedetomidine drip. 8 bowel movements overnight. Less agitated today. Receive 1 dose of haloperidol overnight 1. Objective Vital Signs Date Time Temp Pulse Resp B/P (MAP) Pulse Ox O2 Delivery O2 Flow Rate FiO2 11/30/17 10:00 61 11/30/17 08:28 98 11/30/17 08:00 97.9 23 119/76 (90) 11/29/17 20:16 Nasal Cannula 1.50 11/29/17 09:01 21 Intake and Output 11/30/17 11/30/17 12/01/17 08:00 16:00 00:00 Intake Total 2012.5 ml Output Total 601 ml Balance 1411.5 ml Result Diagram: 11/30/17 0710 11/30/17 0710 Other Results Microbiology Date/Time Source Procedure Growth Status 11/27/17 19:30 Blood Peripheral Aerobic Blood Culture - Preliminary NO GROWTH IN 3 DAYS Resulted 11/27/17 19:30 Blood Peripheral Anaerobic Blood Culture - Preliminary NO GROWTH IN 3 DAYS Resulted 11/24/17 14:20 Urine Catheterized Urine Urine Culture - Final NO GROWTH IN 48 HOURS. Complete Imaging Last Impressions Chest X-Ray 11/30/17 0600 Signed Impressions: Service Date/Time: Thursday, November 30, 2017 04:28 - CONCLUSION: 1. Improved right lower lung zone aeration. Brady Dent MD Head CT 11/29/17 0000 Signed Impressions: Service Date/Time: Wednesday, November 29, 2017 17:46 - CONCLUSION: No evidence of acute intracranial pathology. No masses are identified. Calvin Ball MD Objective Remarks General -47-year-old male currently i resting in bed in no acute distress on room air HEENT - pupils equal, reactive, sclerae anicteric, neck supple, no nuchal rigidity, poor dentition CV -RRR. S1, S2 no S4. Without murmurs Chest - clear b/l, good air entry, no wheezes. Protecting airway Abdomen - soft, non-tender, non-distended, BS present Skin - no rashes, some track calle Extremities - warm and well perfused, no edema, + peripheral pulses, Neuro -cranial nerves II through XII appear to be grossly intact. Moving all 4 extremities spontaneously. Occasionally with clear speech Urinary Catheter: No Assessment to: Continue Vascular Central Line Catheter: No Assessment to: Continue A/P Assessment and Plan Neuro/Psych: EtOH abuse currently going through DTs Currently off dexmedetomidine drip to maintain RASS of 0 Chlordiazepoxide 50 mg p.o. every 6 hours Phenobarbital 90 mg p.o. every 8 hours 5 dosages As needed lorazepam 1 mg IV every 2 hours as needed breakthrough agitation Thiamine 100 mg IV daily, folic acid 1 mg p.o. daily multivitamin 1 tablet p.o. daily Today ordered CT brain/EEG. CT brain 11/24 no acute intracranial findings Urine tox screen on admission revealed EtOH level 322. Positive opiates and benzos UDS As needed haloperidol 5 mg IV every 6 hours as needed 3 days. Stop date 12/02 CV: Sinus bradycardia currently normal sinus rhythm Most likely secondary dexmedetomidine drip. We will weaned off Currently on normal saline at 30 cc an hour Normal TSH Resp: Acute respiratory insufficiency Nasal cannula to maintain saturations greater than equal to 92% Incentive spirometry while awake Albuterol/ipratropium aerosols every 6 hours with albuterol aerosols every 2 hours as needed dyspnea GI: Elevated AST Hypoalbuminemia Hepatitis C positive Advance diet as tolerated Speech therapy evaluate and treat Pantoprazole 40 mg IV daily for GI prophylaxis Docusate sodium/senna 1 tablet twice daily for bowel regimen currently on hold with multiple BMs Check hepatitis C genotype and viral load : Patient currently has a condom catheter Endo: Sliding scale insulin with Novulin R low regimen with Accu-Cheks every before meals and at bedtime to maintain euglycemia TSH within normal limits Renal: Creatinine currently within normal limits Monitor urine output Accurate I's and O's Heme: Thrombocytopenia Macrocytosis Follow-up CBC in a.m. 12/01 ID: MRSA/staph hemolyticus bacteremia Currently vancomycin per infectious disease Microbiology 11/27 -blood cultures 2 -no growth 11/24 -blood cultures 2 -MRSA/staph hemolyticus FEN: Hypokalemia Replace electrolytes as clinically indicated per ICU electrolyte protocol MSK: PT/OT evaluate and treat Access -Utilize peripheral IV. Central line if indicated Prophylaxis -GI -pantoprazole -DVT -SCDs/holding pharmacological prophylaxis in light of thrombocytopenia Level 2 follow-up Israel Mac MD Nov 30, 2017 12:20
[2017-11-30] MEDS ORDERED: MAGNESIUM OXIDE 400 MG TAB PO ONE (12:45)
[2017-11-30] MEDS: MAGNESIUM SULFATE 1 GM PREMIX 100 ML IV SCH ×2 (13:04→14:02)
[2017-11-30] MEDS: POTASSIUM CHLORIDE 10 MEQ CONTROLLED RELEASE TAB PO SCH (13:04)
--- NOTE | 2017-11-30 14:50 | HHI.IDPN ---
Note Infectious Disease Note Patient is currently more calm and appropriately responsive. Afebrile. In restraints. States that he has pain in his back on his arms. Still appears somewhat lethargic. 47-year-old white male who was brought to the emergency department after being found unresponsive at a gas station. The patient apparently lives on the streets. He is noted to have a history of IV drug use. The patient was unresponsive and he was intubated in the emergency department. MEDICATIONS: 1. Vancomycin. Current Medications Medications (Trade) Dose Ordered Sig/Elvis Route PRN Reason Start Time Stop Time Status Last Admin Dose Admin Thiamine HCl 100 mg/Sodium Chloride 101 ml @ 101 mls/hr DAILY IV 11/24/17 17:00 11/30/17 09:17 Miscellaneous Information 1 Q361D XX 11/24/17 16:00 11/24/17 19:00 Chlorhexidine Gluconate (Chlorhexidine 2% Cloth) Taper DAILY@04 TOP 11/25/17 04:00 11/21/18 03:59 11/30/17 04:00 Chlorhexidine Gluconate (Chlorhexidine 2% Cloth) 3 pack UNSCH PRN TOP HYGIENIC CARE 11/24/17 16:00 Chlorhexidine Gluconate (Peridex 0.12% Liq) 15 ml BID@08,20 MT 11/24/17 20:00 11/29/17 21:45 Folic Acid (Folate) 1 mg DAILY PO 11/24/17 20:00 11/30/17 09:16 Sodium Chloride (NS Flush) 2 ml UNSCH PRN IV FLUSH FLUSH AFTER USING IV ACCESS 11/25/17 11:00 11/27/17 15:26 Sodium Chloride (NS Flush) 2 ml BID IV FLUSH 11/25/17 21:00 11/30/17 09:17 Flumazenil (Romazicon Inj) 0.2 mg Q1M PRN IV PUSH SEE LABEL COMMENTS 11/25/17 11:00 11/28/17 23:20 Pharmacy Profile Note 0 ml @ 0 mls/hr UNSCH OTHER 11/25/17 15:45 Albuterol/ Ipratropium (Duoneb Neb) 1 ampule Q6HR NEB INH 11/28/17 10:00 11/30/17 08:27 Dexmedetomidine HCl 200 mcg/ Sodium Chloride 52 ml @ 3.64 mls/hr TITRATE PRN IV SEDATION 11/28/17 09:15 11/29/17 11:50 Lorazepam (Ativan Inj) 1 mg Q2H PRN IV PUSH AGITATION, SEIZURE 11/28/17 09:15 11/29/17 17:33 Miscellaneous Information D/C ICU ELECTROLYTE ORDERS... UNSCH PRN .XX SEE DOSE INSTRUCTIONS 11/28/17 12:45 Miscellaneous Information ICU - CALL ORDERING PHYSIC... UNSCH PRN .XX SEE DOSE INSTRUCTIONS 11/28/17 12:45 Potassium Chloride 100 ml @ 25 mls/hr UNSCH PRN IV ELECTROLYTE REPLACEMENT 11/28/17 12:45 Potassium Bicarb/ Potassium Chloride (K-Lyte Cl Eff) 50 meq UNSCH PRN PO ELECTROLYTE REPLACEMENT 11/28/17 12:45 Potassium Chloride 100 ml @ 50 mls/hr UNSCH PRN IV ELECTROLYTE REPLACEMENT 11/28/17 12:45 11/30/17 13:05 Magnesium Sulfate 4 gm/Sodium Chloride 108 ml @ 54 mls/hr UNSCH PRN IV ELECTROLYTE REPLACEMENT 11/28/17 12:45 Magnesium Sulfate 2 gm/Sodium Chloride 104 ml @ 52 mls/hr UNSCH PRN IV ELECTROLYTE REPLACEMENT 11/28/17 12:45 Magnesium Oxide (Mag-Ox) 800 mg UNSCH PRN PO ELECTROLYTE REPLACEMENT 11/28/17 12:45 Sodium Phosphate 30 mmol/Sodium Chloride 260 ml @ 43.333 mls/ hr UNSCH PRN IV ELECTROLYTE REPLACEMENT 11/28/17 12:45 Potassium Phosphate (K-Phos) 2,000 mg UNSCH PRN PO ELECTROLYTE REPLACEMENT 11/28/17 12:45 Potassium Phosphate 30 mmol/ Sodium Chloride 260 ml @ 43.333 mls/ hr UNSCH PRN IV ELECTROLYTE REPLACEMENT 11/28/17 12:45 Vancomycin HCl 1250 mg/Sodium Chloride 262.5 ml @ 262.5 mls/ hr Q8H IV 11/29/17 02:00 11/30/17 09:17 Miscellaneous Information SPECIFIC LAB TO BE DRAWN:VANCO TROUGH DATE... ONCE ONCE .XX 12/01/17 09:45 12/01/17 09:46 Chlordiazepoxide (Librium) 50 mg Q6H PO 11/29/17 17:00 11/30/17 11:54 Phenobarbital (PHENobarbital) 90 mg Q8HR PO 11/29/17 14:00 11/30/17 22:01 11/30/17 13:04 Haloperidol Lactate (Haldol Inj) 5 mg Q4HR PRN IV PUSH breakthrough agitiation 11/29/17 12:15 12/02/17 12:14 11/30/17 01:55 Miscellaneous (Pill Splitter) 1 ea UNSCH PRN OTHER SEE LABEL COMMENTS 11/29/17 12:30 Albuterol Sulfate (Albuterol Neb) 2.5 mg Q2HR NEB PRN NEB dyspnea 11/29/17 12:30 Sodium Chloride 1,000 ml @ 30 mls/hr Q24H IV 11/29/17 16:00 11/30/17 04:39 Multivitamins (Theragran) 1 tab DAILY PO 11/30/17 09:00 11/30/17 09:16 Pantoprazole Sodium (Protonix Inj) 40 mg Q24H IV PUSH 11/29/17 16:00 11/29/17 16:06 Senna/Docusate Sodium (Melvi-Colace) 1 tab BID PO 11/29/17 21:00 Future Hold 11/29/17 21:00 Potassium Chloride (KCl) 30 meq Q12H PO 11/30/17 13:00 12/01/17 01:01 11/30/17 13:04 Dextrose (D50w (Vial) Inj) 50 ml UNSCH PRN IV PUSH HYPOGLYCEMIA-SEE COMMENTS 11/30/17 12:15 Glucagon (Glucagon Inj) 1 mg UNSCH PRN OTHER HYPOGLYCEMIA-SEE COMMENTS 11/30/17 12:15 Insulin Human Regular (NovoLIN R SUPPLEMENTAL SCALE) 1 ACHS SLIDING SCALE SQ 11/30/17 17:00 Magnesium Sulfate/ Dextrose 100 ml @ 100 mls/hr Q1H IV 11/30/17 13:00 11/30/17 14:59 11/30/17 14:02 Magnesium Oxide (Mag-Ox) 400 mg Q12HR PO 11/30/17 21:00 12/01/17 20:59 OBJECTIVE: Vital Signs Date Time Temp Pulse Resp B/P (MAP) Pulse Ox O2 Delivery O2 Flow Rate FiO2 11/30/17 10:00 61 11/30/17 08:28 98 11/30/17 08:00 55 11/30/17 08:00 97.9 55 23 119/76 (90) 98 11/30/17 06:00 56 11/30/17 04:00 49 11/30/17 04:00 98.2 49 21 120/72 (88) 98 11/30/17 02:00 65 11/30/17 00:00 49 11/30/17 00:00 98.3 49 24 127/86 (100) 97 11/29/17 22:00 46 11/29/17 20:16 Nasal Cannula 1.50 11/29/17 20:00 98.2 88 24 134/79 (97) 97 11/29/17 20:00 88 11/29/17 18:00 45 11/29/17 16:00 58 11/29/17 16:00 98.9 58 24 131/82 (98) 89 Laboratory Tests Test 11/29/17 16:35 11/30/17 07:10 White Blood Count 5.6 TH/MM3 5.8 TH/MM3 Red Blood Count 3.81 MIL/MM3 3.82 MIL/MM3 Hemoglobin 13.4 GM/DL 13.5 GM/DL Hematocrit 38.1 % 38.2 % Mean Corpuscular Volume 100.1 FL 100.1 FL Mean Corpuscular Hemoglobin 35.2 PG 35.3 PG Mean Corpuscular Hemoglobin Concent 35.2 % 35.3 % Red Cell Distribution Width 12.6 % 12.2 % Platelet Count 94 TH/MM3 129 TH/MM3 Mean Platelet Volume 8.2 FL 8.3 FL Neutrophils (%) (Auto) 59.9 % Lymphocytes (%) (Auto) 20.2 % Monocytes (%) (Auto) 15.4 % Eosinophils (%) (Auto) 4.1 % Basophils (%) (Auto) 0.4 % Neutrophils # (Auto) 3.5 TH/MM3 Lymphocytes # (Auto) 1.2 TH/MM3 Monocytes # (Auto) 0.9 TH/MM3 Eosinophils # (Auto) 0.2 TH/MM3 Basophils # (Auto) 0.0 TH/MM3 CBC Comment DIFF FINAL Differential Comment Laboratory Tests Test 11/29/17 03:55 11/29/17 16:35 11/30/17 07:10 Potassium Level 3.5 MEQ/L 3.4 MEQ/L 3.0 MEQ/L Magnesium Level 1.9 MG/DL 1.8 MG/DL 1.5 MG/DL Blood Urea Nitrogen 13 MG/DL 9 MG/DL Creatinine 0.61 MG/DL 0.63 MG/DL Random Glucose 76 MG/DL 79 MG/DL Calcium Level 8.4 MG/DL 7.9 MG/DL Phosphorus Level 3.5 MG/DL 3.0 MG/DL Sodium Level 144 MEQ/L 141 MEQ/L Chloride Level 111 MEQ/L 108 MEQ/L Carbon Dioxide Level 23.1 MEQ/L 25.2 MEQ/L Anion Gap 10 MEQ/L 8 MEQ/L Estimat Glomerular Filtration Rate 143 ML/MIN 138 ML/MIN Total Protein 6.2 GM/DL Albumin 2.7 GM/DL Alkaline Phosphatase 47 U/L Aspartate Amino Transf (AST/SGOT) 51 U/L Alanine Aminotransferase (ALT/SGPT) 41 U/L Total Bilirubin 0.9 MG/DL Direct Bilirubin 0.2 MG/DL Lactic Acid Level 0.9 mmol/L Indirect Bilirubin 0.7 MG/DL Ammonia 11 MCMOL/L Total Creatine Kinase 551 U/L Creatine Kinase MB 1.9 NG/ML Creatine Kinase MB % 0.3 % Triglycerides Level 111 MG/DL Cholesterol Level 131 MG/DL LDL Cholesterol 68 MG/DL HDL Cholesterol 41.3 MG/DL Cholesterol/HDL Ratio 3.17 RATIO Amylase Level 18 U/L Lipase 103 U/L Thyroid Stimulating Hormone 3rd Gen 1.610 uIU/ML Microbiology Date/Time Source Procedure Growth Status 11/27/17 19:30 Blood Peripheral Aerobic Blood Culture - Preliminary NO GROWTH IN 3 DAYS Resulted 11/27/17 19:30 Blood Peripheral Anaerobic Blood Culture - Preliminary NO GROWTH IN 3 DAYS Resulted 11/27/17 19:30 Blood Peripheral Aerobic Blood Culture - Preliminary NO GROWTH IN 3 DAYS Resulted 11/27/17 19:30 Blood Peripheral Anaerobic Blood Culture - Preliminary NO GROWTH IN 3 DAYS Resulted IMAGING: Chest X-Ray 11/30/17 0600 Signed Impressions: Service Date/Time: Thursday, November 30, 2017 04:28 - CONCLUSION: 1. Improved right lower lung zone aeration. Brady Dent MD Head CT 11/29/17 0000 Signed Impressions: Service Date/Time: Wednesday, November 29, 2017 17:46 - CONCLUSION: No evidence of acute intracranial pathology. No masses are identified. Calvin Ball MD Chest X-Ray 11/28/17 0600 Signed Impressions: Service Date/Time: Tuesday, November 28, 2017 04:16 - CONCLUSION: 1. Minimal airspace disease in the right lower lung zone status post extubation, presumably atelectasis. Brady Dent MD Head CT 11/24/17 0000 Signed Impressions: Service Date/Time: November 16:05 - CONCLUSION: No acute findings in the brain. No evidence of acute hemorrhage. Kev Deshpande MD PHYSICAL EXAMINATION: GENERAL: Awake. Lethargic. HEAD, EYES, EARS, NOSE, THROAT: The head is atraumatic. Extraocular movements Intact. The oropharynx mucosa appears dry. His teeth are in a very poor state of disrepair and he has several missing teeth. NECK: The neck is supple without adenopathy or swelling. LUNGS: Decreased breath sounds. HEART: Regular S1 and S2. No audible murmurs, rubs or gallops. ABDOMEN: Bowel sounds present, flat, soft, no tenderness. EXTREMITIES: No clubbing or cyanosis or edema. The patient has dried peeling skin at the plantar aspects of the feet. He has several calluses at the fingers of the hands. SKIN: No diffuse rash. NEUROLOGIC: Unable to asses. PSYCHIATRIC: calm. IMPRESSION: 1. Bacteremia due to Staph aureus / Staph haemolyticus. 2D echocardiogram without evidence of endocarditis. 2. IV drug abuse. 3. Altered mental status. Improved. The positive blood culture is very likely due to the IV drug use. He may have introduced bacteria into the blood stream through the process of injecting IV drugs. His chest x-ray is improving and he is not producing any sputum RECOMMENDATIONS: 1. Continue Vancomycin until December 04. 2. Appears to be gradually improving. I will continue to see as needed. Trace Soto MD Nov 30, 2017 14:50
--- NOTE | 2017-11-30 15:49 | MG ---
cc: Farrah Huang MD EEG #: [id number]. REFERRING: ROOM: 523. Brief awakeness with sleep. Photic stimulation. CT negative. Found unresponsive in the grass at a gas station with pulse and BP was returned. Alcohol and drug withdrawal. Bradycardic, on Precedex, very agitated. History of alcohol, substance abuse. On Librium, phenobarbital, antibiotics, Haldol, thiamine. DESCRIPTION OF RECORD: Patient has 9-10 Hz alpha, at times variable. Some brief snoring noted with fairly symmetrical background. Even throughout sleep, he has good reactivity. No epileptic activity. Photic stimulation, there is a driving response. IMPRESSION: Normal electroencephalogram with some occasional beta frequency waves seen that could be due to medication effect such as benzodiazepines, no epileptic activity otherwise. Clinical correlation. MD ANGI Campuzano/GIAN , 03:23 PM , 03:47 PM
[2017-11-30] MEDS: PANTOPRAZOLE SODIUM 40 MG VIAL IV PUSH SCH (15:50)
[2017-11-30] MEDS: INSULIN NovoLIN REGULAR SUPPLEMENTAL SCALE SQ SCH ×2 (16:08→21:00)
[2017-11-30] MEDS: MAGNESIUM OXIDE 400 MG TAB PO SCH (21:26)
[2017-11-30 21:43] LABS: MAGNESIUM 1.9 MG/DL (1.5-2.5)
[2017-12-01] VITALS (15 sets, daily range): BP systolic 104–121; BP diastolic 56–85; PULSE 47–81; RESP 19–23; TEMP 97.6–98.2; O2SAT 95–100
[2017-12-01] MEDS: VANCOMYCIN INJ 1,250 MG in SODIUM CHLOR 0.9% 250 ML INJ 250 ML IV SCH ×3 (02:06→17:08)
[2017-12-01] MEDS: POTASSIUM CHLORIDE 10 MEQ CONTROLLED RELEASE TAB PO SCH ×3 (02:06→21:14)
[2017-12-01] MEDS: RESP: ALBUTEROL 2.5 MG/IPRATROPIUM 0.5 MG NEB (SCH) INH ×4 (03:07→20:34)
[2017-12-01] MEDS: CHLORHEXIDINE GLUCONATE 2 % 1 PACK (2 CLOTHS) TOP SCH (04:00)
[2017-12-01 05:13] LABS: AUTOMATED NEUTROPHIL # 2.9 TH/MM3 (1.8-7.7); BASOPHIL % 0.6 % (0.0-2.0); EOSINOPHIL # 0.2 TH/MM3 (0-0.4); EOSINOPHIL % 4.6 % (0.0-4.0); HEMATOCRIT 36.7 % (39.0-51.0); LYMPH % 25.1 % (9.0-44.0); LYMPHOCYTE # 1.3 TH/MM3 (1.0-4.8); MEAN CORPUSCULAR HEMOGLOBIN 35.1 PG (27.0-34.0); MEAN CORPUSCULAR HGB CONC 35.5 % (32.0-36.0); MEAN PLATELET VOLUME 8.2 FL (7.0-11.0); MONO % 14.9 % (0.0-8.0); MONOCYTE # 0.8 TH/MM3 (0-0.9); NEUT % 54.8 % (16.0-70.0); PLATELET COUNT 154 TH/MM3 (150-450); RED BLOOD COUNT 3.71 MIL/MM3 (4.50-5.90); RED CELL DISTRIBUTION WIDTH 12.4 % (11.6-17.2); WHITE BLOOD COUNT 5.3 TH/MM3 (4.0-11.0)
[2017-12-01 05:29] LABS: ALBUMIN 2.6 GM/DL (3.4-5.0); AST (GOT) 42 U/L (15-37); BICARBONATE 26.7 MEQ/L (21.0-32.0); BLOOD UREA NITROGEN 6 MG/DL (7-18); CALCIUM 8.1 MG/DL (8.5-10.1); CHLORIDE 106 MEQ/L (98-107); CREATININE 0.51 MG/DL (0.60-1.30); GLOMERULAR FILTRATION RATE 176 ML/MIN (>89); GLUCOSE,RANDOM 90 MG/DL (74-106); MAGNESIUM 1.7 MG/DL (1.5-2.5); SODIUM (NA) 141 MEQ/L (136-145)
[2017-12-01 05:31] LABS: ALT (GPT) 39 U/L (12-78); PHOSPHORUS 2.8 MG/DL (2.5-4.9)
[2017-12-01 05:33] LABS: ALKALINE PHOSPHATASE 44 U/L (45-117); TOTAL BILIRUBIN ADULT 0.6 MG/DL (0.2-1.0); TOTAL PROTEIN 5.8 GM/DL (6.4-8.2)
[2017-12-01] MEDS: chlordiazePOXIDE 25 MG CAP PO SCH ×4 (05:34→21:14)
[2017-12-01] MEDS: INSULIN NovoLIN REGULAR SUPPLEMENTAL SCALE SQ SCH ×4 (08:00→20:20)
[2017-12-01] MEDS: CHLORHEXIDINE 0.12% (ORAL KIT) 15 ML CUP MT SCH ×2 (08:00→20:00)
[2017-12-01] MEDS: MULTIVITAMIN TAB PO SCH (08:48)
[2017-12-01] MEDS: SODIUM CHLORIDE 0.9% FLUSH 10 ML FLUSH IV FLUSH SCH ×2 (08:48→21:00)
[2017-12-01] MEDS: FOLIC ACID 1 MG TAB PO SCH (08:48)
[2017-12-01] MEDS: MAGNESIUM OXIDE 400 MG TAB PO SCH (08:48)
[2017-12-01] MEDS: ICU - POTASSIUM CHLORIDE/AQUEOUS SOLN 20 MEQ/100 ML IVPB IV PRN ×2 (08:51→15:59)
[2017-12-01] MEDS ORDERED: PHARMACY ORDERED LAB ONE (09:45)
--- NOTE | 2017-12-01 10:58 | HHI.CCPN ---
Subjective Remarks/Hospital Course Middle-aged gentleman with unknown past medical history was found down [place] the ground [place] the gas station unresponsive. History is limited, no family or friends at bedside, obtained entirely from ED chart. By standards present at that time told EMS that patient is a known drug user. On EMS arrival patient had no pulse CPR was briefly initiated and after a dose of Narcan patient regained pulse and blood pressure. Upon ED arrival patient remained unresponsive but with good blood pressure and good pulse. He was immediately intubated by ED physician without using any drugs and he was noticed gagging on the ET tube therefore he was started on propofol for sedation. He received 1 L normal saline bolus. He underwent a CT head which did not show any acute pathology. [facility] service now consulted for ICU admission. Patient was seen in ER , on sedation, unresponsive. 11/25: Patient remains intubated sedated with propofol. Gets agitated on sedation hold but tolerate CPAP. Chest x-ray clear. Plan for weaning to extubation 11/26: Extubated yesterday currently in severe alcohol and drug withdrawal in four-point restraints for patient's safety. Receiving Ativan per CIWA protocol. We will start scheduled Librium 25 mg every 6 hours 11/27: Sedated from receiving Ativan per CIWA protocol. Able to say his name otherwise remained sedated. Asked RN to remove LE restraints 11/28: Remains heavily sedated due to severe agitation overnight. Apparently per RN received 18 mg of Ativan last 12 hours. I will discontinue CIWA protocol and start on Precedex with as needed Ativan. Continue scheduled Librium 11/29: Bradycardic on dexmedetomidine drip. Extremely agitated. Second episode overnight where patient received too much lorazepam became obtunded. 11/30: Afebrile. Currently off dexmedetomidine drip. 8 bowel movements overnight. Less agitated today. Receive 1 dose of haloperidol overnight 1. Subjective 12/01: Afebrile. Currently off dexmedetomidine drip. Unrestrained. Tolerating diet. Potassium currently being replaced. Objective Vital Signs Date Time Temp Pulse Resp B/P (MAP) Pulse Ox O2 Delivery O2 Flow Rate FiO2 12/01/17 09:35 99 21 12/01/17 08:00 97.6 70 21 121/85 (97) 11/29/17 20:16 Nasal Cannula 1.50 Intake and Output 12/01/17 12/01/1718 08:00 16:00 00:00 Intake Total 200 ml Output Total 1000 ml Balance -800 ml Result Diagram: 12/01/17 0445 12/01/17 0445 Other Results Microbiology Date/Time Source Procedure Growth Status 11/27/17 19:30 Blood Peripheral Aerobic Blood Culture - Preliminary NO GROWTH IN 3 DAYS Resulted 11/27/17 19:30 Blood Peripheral Anaerobic Blood Culture - Preliminary NO GROWTH IN 3 DAYS Resulted 11/24/17 14:20 Urine Catheterized Urine Urine Culture - Final NO GROWTH IN 48 HOURS. Complete Imaging Last Impressions Chest X-Ray 11/30/17 0600 Signed Impressions: Service Date/Time: Thursday, November 30, 2017 04:28 - CONCLUSION: 1. Improved right lower lung zone aeration. Brady Dent MD Head CT 11/29/17 0000 Signed Impressions: Service Date/Time: Wednesday, November 29, 2017 17:46 - CONCLUSION: No evidence of acute intracranial pathology. No masses are identified. Calvin Ball MD Objective Remarks General -47-year-old male currently resting in bed in no acute distress on room air HEENT - pupils equal, reactive, sclerae anicteric, neck supple, no nuchal rigidity, poor dentition CV -RRR. S1, S2 no S4. Without murmurs Chest - clear b/l, good air entry, no wheezes. Protecting airway Abdomen - soft, non-tender, non-distended, BS present Skin - no rashes, some track calle Extremities - warm and well perfused, no edema, + peripheral pulses, Neuro -cranial nerves II through XII appear to be grossly intact. Moving all 4 extremities spontaneously. Occasionally with clear speech Urinary Catheter: No Assessment to: Continue Vascular Central Line Catheter: No Assessment to: Continue A/P Assessment and Plan Neuro/Psych: EtOH abuse currently going through DTs Currently off dexmedetomidine drip to maintain RASS of 0 Chlordiazepoxide 50 mg p.o. every 6 hours Phenobarbital 90 mg p.o. every 8 hours 5 dosages As needed lorazepam 1 mg IV every 2 hours as needed breakthrough agitation Thiamine 100 mg IV daily, folic acid 1 mg p.o. daily multivitamin 1 tablet p.o. daily Negative 11/30 CT brain/EEG. CT brain 11/24 no acute intracranial findings Urine tox screen on admission revealed EtOH level 322. Positive opiates and benzos UDS As needed haloperidol 5 mg IV every 6 hours as needed 3 days. Stop date 12/02 CV: Sinus bradycardia currently normal sinus rhythm Most likely secondary dexmedetomidine drip. Resolved Discontinue normal saline at 30 cc an hour Normal TSH Resp: Acute respiratory insufficiency Nasal cannula to maintain saturations greater than equal to 92% Incentive spirometry while awake Albuterol/ipratropium aerosols every 6 hours with albuterol aerosols every 2 hours as needed dyspnea GI: Elevated AST Hypoalbuminemia Hepatitis C positive Advance diet as tolerated Speech therapy evaluate and treat Pantoprazole 40 mg IV daily for GI prophylaxis Docusate sodium/senna 1 tablet twice daily for bowel regimen currently on hold with multiple BMs Check hepatitis C genotype and viral load : Patient currently has a condom catheter Endo: Sliding scale insulin with Novulin R low regimen with Accu-Cheks every before meals and at bedtime to maintain euglycemia TSH within normal limits Renal: Creatinine currently within normal limits Monitor urine output Accurate I's and O's Heme: Follow-up CBC in a.m. 12/02 ID: MRSA/staph hemolyticus bacteremia Currently vancomycin per infectious disease Microbiology 11/27 -blood cultures 2 -no growth 11/24 -blood cultures 2 -MRSA/staph hemolyticus FEN: Hypokalemia Replace electrolytes as clinically indicated per ICU electrolyte protocol MSK: PT/OT evaluate and treat Access -Utilize peripheral IV. Central line if indicated Prophylaxis -GI -pantoprazole -DVT -SCDs/holding pharmacological prophylaxis in light of thrombocytopenia. Will restart today 12/01 Level 2 follow-up Israel Mac MD Dec 01, 2017 10:58
[2017-12-01] MEDS: MAGNESIUM SULFATE 1 GM PREMIX 100 ML IV SCH ×2 (12:00→14:36)
[2017-12-01] MEDS: ENOXAPARIN SODIUM 40 MG/0.4 ML SYRINGE SQ SCH (12:04)
[2017-12-01] MEDS: THIAMINE INJ 100 MG in SODIUM CHLORIDE 0.9% INJ 100 ML IV SCH (14:37)
[2017-12-01] MEDS: PANTOPRAZOLE SODIUM 40 MG VIAL IV PUSH SCH (14:37)
[2017-12-01] MEDS: SODIUM CHLOR 0.9% 1000 ML INJ 1,000 ML IV SCH (21:17)
[2017-12-02] VITALS (15 sets, daily range): BP systolic 105–123; BP diastolic 55–77; PULSE 57–83; RESP 16–34; TEMP 97.5–98.5; O2SAT 94–99
[2017-12-02] MEDS: RESP: ALBUTEROL 2.5 MG/IPRATROPIUM 0.5 MG NEB (SCH) INH ×4 (02:48→21:07)
[2017-12-02] MEDS: CHLORHEXIDINE GLUCONATE 2 % 1 PACK (2 CLOTHS) TOP SCH (04:00)
[2017-12-02] MEDS: VANCOMYCIN INJ 1,250 MG in SODIUM CHLOR 0.9% 250 ML INJ 250 ML IV SCH ×3 (04:51→17:16)
[2017-12-02] MEDS: chlordiazePOXIDE 25 MG CAP PO SCH ×3 (04:52→17:16)
[2017-12-02 05:08] LABS: HEMATOCRIT 37.4 % (39.0-51.0); HEMOGLOBIN 13.2 GM/DL (13.0-17.0); MEAN CORPUSCULAR HEMOGLOBIN 34.9 PG (27.0-34.0); MEAN CORPUSCULAR HGB CONC 35.2 % (32.0-36.0); MEAN PLATELET VOLUME 8.5 FL (7.0-11.0); PLATELET COUNT 192 TH/MM3 (150-450); RED BLOOD COUNT 3.78 MIL/MM3 (4.50-5.90); RED CELL DISTRIBUTION WIDTH 12.2 % (11.6-17.2); WHITE BLOOD COUNT 4.9 TH/MM3 (4.0-11.0)
[2017-12-02 05:27] LABS: BICARBONATE 27.6 MEQ/L (21.0-32.0); CALCIUM 8.2 MG/DL (8.5-10.1); CREATININE 0.65 MG/DL (0.60-1.30)
[2017-12-02] MEDS: INSULIN NovoLIN REGULAR SUPPLEMENTAL SCALE SQ SCH ×4 (08:00→19:38)
[2017-12-02] MEDS: CHLORHEXIDINE 0.12% (ORAL KIT) 15 ML CUP MT SCH ×2 (08:00→19:38)
[2017-12-02] MEDS: MULTIVITAMIN TAB PO SCH (09:06)
[2017-12-02] MEDS: SODIUM CHLORIDE 0.9% FLUSH 10 ML FLUSH IV FLUSH SCH ×2 (09:06→19:38)
[2017-12-02] MEDS: FOLIC ACID 1 MG TAB PO SCH (09:06)
[2017-12-02] MEDS: POTASSIUM CHLORIDE 10 MEQ CONTROLLED RELEASE TAB PO SCH (09:06)
--- NOTE | 2017-12-02 11:29 | HHI.IDPN ---
Note Infectious Disease Note Patient is awake and alert and responsive. Oriented 3. Afebrile. No longer in restraints. Feels better. Speech is clear. 47-year-old white male who was brought to the emergency department after being found unresponsive at a gas station. The patient apparently lives on the streets. He is noted to have a history of IV drug use. The patient was unresponsive and he was intubated in the emergency department. MEDICATIONS: 1. Vancomycin. Current Medications Medications (Trade) Dose Ordered Sig/Elvis Route PRN Reason Start Time Stop Time Status Last Admin Dose Admin Thiamine HCl 100 mg/Sodium Chloride 101 ml @ 101 mls/hr DAILY IV 11/24/17 17:00 12/01/17 14:37 Miscellaneous Information 1 Q361D XX 11/24/17 16:00 11/24/17 19:00 Chlorhexidine Gluconate (Chlorhexidine 2% Cloth) Taper DAILY@04 TOP 11/25/17 04:00 11/21/18 03:59 12/01/17 04:00 Chlorhexidine Gluconate (Chlorhexidine 2% Cloth) 3 pack UNSCH PRN TOP HYGIENIC CARE 11/24/17 16:00 Chlorhexidine Gluconate (Peridex 0.12% Liq) 15 ml BID@08,20 MT 11/24/17 20:00 11/30/17 21:26 Folic Acid (Folate) 1 mg DAILY PO 11/24/17 20:00 12/02/17 09:06 Sodium Chloride (NS Flush) 2 ml UNSCH PRN IV FLUSH FLUSH AFTER USING IV ACCESS 11/25/17 11:00 11/27/17 15:26 Sodium Chloride (NS Flush) 2 ml BID IV FLUSH 11/25/17 21:00 12/02/17 09:06 Flumazenil (Romazicon Inj) 0.2 mg Q1M PRN IV PUSH SEE LABEL COMMENTS 11/25/17 11:00 11/28/17 23:20 Pharmacy Profile Note 0 ml @ 0 mls/hr UNSCH OTHER 11/25/17 15:45 Lorazepam (Ativan Inj) 1 mg Q2H PRN IV PUSH AGITATION, SEIZURE 11/28/17 09:15 11/29/17 17:33 Miscellaneous Information D/C ICU ELECTROLYTE ORDERS... UNSCH PRN .XX SEE DOSE INSTRUCTIONS 11/28/17 12:45 Miscellaneous Information ICU - CALL ORDERING PHYSIC... UNSCH PRN .XX SEE DOSE INSTRUCTIONS 11/28/17 12:45 Potassium Chloride 100 ml @ 25 mls/hr UNSCH PRN IV ELECTROLYTE REPLACEMENT 11/28/17 12:45 Potassium Bicarb/ Potassium Chloride (K-Lyte Cl Eff) 50 meq UNSCH PRN PO ELECTROLYTE REPLACEMENT 11/28/17 12:45 Potassium Chloride 100 ml @ 50 mls/hr UNSCH PRN IV ELECTROLYTE REPLACEMENT 11/28/17 12:45 12/01/17 15:59 Magnesium Sulfate 4 gm/Sodium Chloride 108 ml @ 54 mls/hr UNSCH PRN IV ELECTROLYTE REPLACEMENT 11/28/17 12:45 Magnesium Sulfate 2 gm/Sodium Chloride 104 ml @ 52 mls/hr UNSCH PRN IV ELECTROLYTE REPLACEMENT 11/28/17 12:45 Magnesium Oxide (Mag-Ox) 800 mg UNSCH PRN PO ELECTROLYTE REPLACEMENT 11/28/17 12:45 Sodium Phosphate 30 mmol/Sodium Chloride 260 ml @ 43.333 mls/ hr UNSCH PRN IV ELECTROLYTE REPLACEMENT 11/28/17 12:45 Potassium Phosphate (K-Phos) 2,000 mg UNSCH PRN PO ELECTROLYTE REPLACEMENT 11/28/17 12:45 Potassium Phosphate 30 mmol/ Sodium Chloride 260 ml @ 43.333 mls/ hr UNSCH PRN IV ELECTROLYTE REPLACEMENT 11/28/17 12:45 Vancomycin HCl 1250 mg/Sodium Chloride 262.5 ml @ 262.5 mls/ hr Q8H IV 11/29/17 02:00 12/02/17 09:06 Chlordiazepoxide (Librium) 50 mg Q6H PO 11/29/17 17:00 12/02/17 04:52 Haloperidol Lactate (Haldol Inj) 5 mg Q4HR PRN IV PUSH breakthrough agitiation 11/29/17 12:15 12/02/17 12:14 11/30/17 21:24 Miscellaneous (Pill Splitter) 1 ea UNSCH PRN OTHER SEE LABEL COMMENTS 11/29/17 12:30 Albuterol Sulfate (Albuterol Neb) 2.5 mg Q2HR NEB PRN NEB dyspnea 11/29/17 12:30 Multivitamins (Theragran) 1 tab DAILY PO 11/30/17 09:00 12/02/17 09:06 Pantoprazole Sodium (Protonix Inj) 40 mg Q24H IV PUSH 11/29/17 16:00 12/01/17 14:37 Senna/Docusate Sodium (Melvi-Colace) 1 tab BID PO 11/29/17 21:00 Future Hold 11/29/17 21:00 Dextrose (D50w (Vial) Inj) 50 ml UNSCH PRN IV PUSH HYPOGLYCEMIA-SEE COMMENTS 11/30/17 12:15 Glucagon (Glucagon Inj) 1 mg UNSCH PRN OTHER HYPOGLYCEMIA-SEE COMMENTS 11/30/17 12:15 Insulin Human Regular (NovoLIN R SUPPLEMENTAL SCALE) 1 ACHS SLIDING SCALE SQ 11/30/17 17:00 Albuterol/ Ipratropium (Duoneb Neb) 1 ampule Q6HR NEB INH 12/01/17 16:00 12/02/17 08:25 Enoxaparin Sodium (Lovenox Inj) 40 mg Q24H SQ 12/01/17 12:00 12/01/17 12:04 Miscellaneous Information SPECIFIC LAB TO BE DRAWN:VANCO TROUGH DATE TO BE DR... ONCE ONCE .XX 12/03/17 01:45 12/03/17 01:46 OBJECTIVE: Vital Signs Date Time Temp Pulse Resp B/P (MAP) Pulse Ox O2 Delivery O2 Flow Rate FiO2 12/02/17 10:00 70 12/02/17 08:25 99 12/02/17 08:00 68 12/02/17 06:00 60 12/02/17 04:00 57 12/02/17 04:00 97.5 57 19 111/70 (84) 99 12/02/17 02:00 59 12/02/17 00:00 63 12/02/17 00:00 97.5 63 16 107/55 (72) 99 12/01/17 22:34 97 Nasal Cannula 2.00 12/01/17 22:00 73 12/01/17 20:35 95 21 12/01/17 20:00 75 12/01/17 20:00 98.1 75 22 105/56 (72) 99 12/01/17 18:00 79 12/01/17 16:00 71 12/01/17 16:00 98.2 71 23 117/56 (76) 99 12/01/17 14:00 69 12/01/17 12:00 62 12/01/17 12:00 97.8 62 22 104/58 (73) 95 Laboratory Tests Test 12/01/17 04:45 12/02/17 04:25 White Blood Count 5.3 TH/MM3 4.9 TH/MM3 Red Blood Count 3.71 MIL/MM3 3.78 MIL/MM3 Hemoglobin 13.0 GM/DL 13.2 GM/DL Hematocrit 36.7 % 37.4 % Mean Corpuscular Volume 99.0 FL 99.0 FL Mean Corpuscular Hemoglobin 35.1 PG 34.9 PG Mean Corpuscular Hemoglobin Concent 35.5 % 35.2 % Red Cell Distribution Width 12.4 % 12.2 % Platelet Count 154 TH/MM3 192 TH/MM3 Mean Platelet Volume 8.2 FL 8.5 FL Neutrophils (%) (Auto) 54.8 % Lymphocytes (%) (Auto) 25.1 % Monocytes (%) (Auto) 14.9 % Eosinophils (%) (Auto) 4.6 % Basophils (%) (Auto) 0.6 % Neutrophils # (Auto) 2.9 TH/MM3 Lymphocytes # (Auto) 1.3 TH/MM3 Monocytes # (Auto) 0.8 TH/MM3 Eosinophils # (Auto) 0.2 TH/MM3 Basophils # (Auto) 0.0 TH/MM3 CBC Comment DIFF FINAL Differential Comment Laboratory Tests Test 11/30/17 21:17 12/01/17 04:45 12/02/17 04:25 Potassium Level 3.7 MEQ/L 3.5 MEQ/L 3.7 MEQ/L Magnesium Level 1.9 MG/DL 1.7 MG/DL 2.0 MG/DL Blood Urea Nitrogen 6 MG/DL 5 MG/DL Creatinine 0.51 MG/DL 0.65 MG/DL Random Glucose 90 MG/DL 86 MG/DL Total Protein 5.8 GM/DL Albumin 2.6 GM/DL Calcium Level 8.1 MG/DL 8.2 MG/DL Phosphorus Level 2.8 MG/DL Alkaline Phosphatase 44 U/L Aspartate Amino Transf (AST/SGOT) 42 U/L Alanine Aminotransferase (ALT/SGPT) 39 U/L Total Bilirubin 0.6 MG/DL Sodium Level 141 MEQ/L 142 MEQ/L Chloride Level 106 MEQ/L 109 MEQ/L Carbon Dioxide Level 26.7 MEQ/L 27.6 MEQ/L Anion Gap 8 MEQ/L 5 MEQ/L Estimat Glomerular Filtration Rate 176 ML/MIN 133 ML/MIN IMAGING: Chest X-Ray 11/30/17 0600 Signed Impressions: Service Date/Time: Thursday, November 30, 2017 04:28 - CONCLUSION: 1. Improved right lower lung zone aeration. Brady Dent MD Head CT 11/29/17 0000 Signed Impressions: Service Date/Time: Wednesday, November 29, 2017 17:46 - CONCLUSION: No evidence of acute intracranial pathology. No masses are identified. Calvin Ball MD Chest X-Ray 11/28/17 06 Signed Impressions: Service Date/Time: Tuesday, November 28, 2017 04:16 - CONCLUSION: 1. Minimal airspace disease in the right lower lung zone status post extubation, presumably atelectasis. Brady Dent MD Head CT 11/24/17 0000 Signed Impressions: Service Date/Time: November 16:05 - CONCLUSION: No acute findings in the brain. No evidence of acute hemorrhage. Kev Deshpande MD PHYSICAL EXAMINATION: GENERAL: Awake. Lethargic. HEENT: The head is atraumatic. Extraocular movements Intact. The oropharynx mucosa appears dry. His teeth are in a very poor state of disrepair and he has several missing teeth. NECK: Supple without adenopathy or swelling. LUNGS: Decreased breath sounds. HEART: Regular S1 and S2. No audible murmurs, rubs or gallops. ABDOMEN: Bowel sounds present, flat, soft, no tenderness. EXTREMITIES: No clubbing or cyanosis or edema. The patient has dried peeling skin at the plantar aspects of the feet. He has several calluses at the fingers of the hands. SKIN: No diffuse rash. NEUROLOGIC: Nonfocal. PSYCHIATRIC: calm. IMPRESSION: 1. Bacteremia due to Staph aureus / Staph haemolyticus. 2D echocardiogram without evidence of endocarditis. 2. IV drug abuse. 3. Altered mental status. Improved. The positive blood culture is very likely due to the IV drug use. He may have introduced bacteria into the blood stream through the process of injecting IV drugs. His chest x-ray is improving and he is not producing any sputum RECOMMENDATIONS: Continue Vancomycin until December 04. End date ordered. Patient is stable. I will sign off now. Please reconsult if further input is needed. Trace Soto MD Dec 02, 2017 11:29
[2017-12-02] MEDS: ENOXAPARIN SODIUM 40 MG/0.4 ML SYRINGE SQ SCH (13:34)
[2017-12-02] MEDS: THIAMINE INJ 100 MG in SODIUM CHLORIDE 0.9% INJ 100 ML IV SCH (13:34)
[2017-12-02] MEDS: PANTOPRAZOLE SODIUM 40 MG VIAL IV PUSH SCH (17:16)
--- NOTE | 2017-12-02 19:36 | HHI.CCPN ---
Subjective Remarks/Hospital Course Middle-aged gentleman with unknown past medical history was [place] down [place] the gas station unresponsive. History is limited, no family or friends at bedside, obtained entirely from ED chart. By standards present at that time told EMS that patient is a known drug user. On EMS arrival patient had no pulse CPR was briefly initiated and after a dose of Narcan patient regained pulse and blood pressure. Upon ED arrival patient remained unresponsive but with good blood pressure and good pulse. He was immediately intubated by ED physician without using any drugs and he was noticed gagging on the ET tube therefore he was started on propofol for sedation. He received 1 L normal saline bolus. He underwent a CT head which did not show any acute pathology. CCM service now consulted for ICU admission. Patient was seen in ER , on sedation, unresponsive. 11/25: Patient remains intubated sedated with propofol. Gets agitated on sedation hold but tolerate CPAP. Chest x-ray clear. Plan for weaning to extubation 11/26: Extubated yesterday currently in severe alcohol and drug withdrawal in four-point restraints for patient's safety. Receiving Ativan per CIWA protocol. We will start scheduled Librium 25 mg every 6 hours 11/27: Sedated from receiving Ativan per CIWA protocol. Able to say his name otherwise remained sedated. Asked RN to remove LE restraints 11/28: Remains heavily sedated due to severe agitation overnight. Apparently per RN received 18 mg of Ativan last 12 hours. I will discontinue CIWA protocol and start on Precedex with as needed Ativan. Continue scheduled Librium 11/29: Bradycardic on dexmedetomidine drip. Extremely agitated. Second episode overnight where patient received too much lorazepam became obtunded. 11/30: Afebrile. Currently off dexmedetomidine drip. 8 bowel movements overnight. Less agitated today. Receive 1 dose of haloperidol overnight 1. 12/01: Afebrile. Currently off dexmedetomidine drip. Unrestrained. Tolerating diet. Potassium currently being replaced. Subjective 12/02: Resting in bed in no acute distress. Afebrile. Unrestrained. Tolerating diet. Objective Vital Signs Date Time Temp Pulse Resp B/P (MAP) Pulse Ox O2 Delivery O2 Flow Rate FiO2 12/02/17 18:00 70 12/02/17 16:00 98.3 23 105/61 (76) 94 12/01/17 22:34 Nasal Cannula 2.00 12/01/17 20:35 21 Intake and Output 12/02/17 12/02/17 12/02/17 07:59 15:59 23:59 Intake Total 1441.5 ml 363 ml 862.3 ml Output Total 1350 ml 1800 ml Balance 91.5 ml 363 ml -937.7 ml Result Diagram: 12/02/17 0425 12/02/17 0425 Other Results Microbiology Date/Time Source Procedure Growth Status 11/27/17 19:30 Blood Peripheral Aerobic Blood Culture - Final NO GROWTH IN 5 DAYS Complete 11/27/17 19:30 Blood Peripheral Anaerobic Blood Culture - Final NO GROWTH IN 5 DAYS Complete 11/24/17 14:20 Urine Catheterized Urine Urine Culture - Final NO GROWTH IN 48 HOURS. Complete Imaging Last Impressions Chest X-Ray 11/30/17 0600 Signed Impressions: Service Date/Time: Thursday, November 30, 2017 04:28 - CONCLUSION: 1. Improved right lower lung zone aeration. Brady Dent MD Head CT 11/29/17 0000 Signed Impressions: Service Date/Time: Wednesday, November 29, 2017 17:46 - CONCLUSION: No evidence of acute intracranial pathology. No masses are identified. Calvin Ball MD Objective Remarks General -47-year-old male currently resting in bed in no acute distress on room air HEENT - pupils equal, reactive, sclerae anicteric, neck supple, no nuchal rigidity, poor dentition CV -RRR. S1, S2 no S4. Without murmurs Chest - clear b/l, good air entry, no wheezes. Protecting airway Abdomen - soft, non-tender, non-distended, BS present Skin - no rashes, some track calle Extremities - warm and well perfused, no edema, + peripheral pulses, Neuro -cranial nerves II through XII appear to be grossly intact. Moving all 4 extremities spontaneously. Occasionally with clear speech Urinary Catheter: No Assessment to: Continue Vascular Central Line Catheter: No Assessment to: Continue A/P Assessment and Plan Neuro/Psych: EtOH abuse currently going through DTs Currently off dexmedetomidine drip to maintain RASS of 0 Chlordiazepoxide 50 mg p.o. every 6 hours Phenobarbital 90 mg p.o. every 8 hours 5 dosages has been completed As needed lorazepam 1 mg IV every 2 hours as needed breakthrough agitation Thiamine 100 mg IV daily, folic acid 1 mg p.o. daily multivitamin 1 tablet p.o. daily Negative 11/30 CT brain/EEG. CT brain 11/24 no acute intracranial findings Urine tox screen on admission revealed EtOH level 322. Positive opiates and benzos UDS CV: Sinus bradycardia currently normal sinus rhythm Most likely secondary dexmedetomidine drip. Resolved Discontinue normal saline at 30 cc an hour Normal TSH Resp: Acute respiratory insufficiency Nasal cannula to maintain saturations greater than equal to 92% Incentive spirometry while awake Albuterol/ipratropium aerosols every 6 hours with albuterol aerosols every 2 hours as needed dyspnea GI: Elevated AST Hypoalbuminemia Hepatitis C positive Advance diet as tolerated Speech therapy evaluate and treat Pantoprazole 40 mg IV daily for GI prophylaxis Docusate sodium/senna 1 tablet twice daily for bowel regimen currently on hold with multiple BMs Check hepatitis C genotype and viral load : Patient currently has a condom catheter Endo: Sliding scale insulin with Novulin R low regimen with Accu-Cheks every before meals and at bedtime to maintain euglycemia TSH within normal limits Renal: Creatinine currently within normal limits Monitor urine output Accurate I's and O's Heme: Follow-up CBC in a.m. 12/03 ID: MRSA/staph hemolyticus bacteremia Currently vancomycin per infectious disease Microbiology 11/27 -blood cultures 2 -no growth 11/24 -blood cultures 2 -MRSA/staph hemolyticus FEN: Hypokalemia Replace electrolytes as clinically indicated per ICU electrolyte protocol MSK: PT/OT evaluate and treat Access -Utilize peripheral IV. Central line if indicated Prophylaxis -GI -pantoprazole -DVT -SCDs/enoxaparin Level 2 follow-up Patient is stable from a critical care medicine standpoint.. Transfer care to hospitalist in a.m. 12/03. Okay to transfer out of ICU Israel Mac MD Dec 02, 2017 19:36
[2017-12-03] VITALS (11 sets, daily range): BP systolic 91–129; BP diastolic 60–77; PULSE 57–94; RESP 16–24; TEMP 97.4–98.8; O2SAT 90–98
[2017-12-03] MEDS ORDERED: PHARMACY ORDERED LAB ONE (01:45)
[2017-12-03] MEDS: VANCOMYCIN INJ 1,250 MG in SODIUM CHLOR 0.9% 250 ML INJ 250 ML IV SCH ×3 (02:56→18:36)
[2017-12-03] MEDS: chlordiazePOXIDE 25 MG CAP PO SCH ×4 (02:56→22:11)
[2017-12-03] MEDS: CHLORHEXIDINE GLUCONATE 2 % 1 PACK (2 CLOTHS) TOP SCH (04:00)
[2017-12-03] MEDS: RESP: ALBUTEROL 2.5 MG/IPRATROPIUM 0.5 MG NEB (SCH) INH ×4 (05:07→20:48)
--- NOTE | 2017-12-03 07:47 | HHI.PR ---
Subjective Remarks Pt seen and examined this morning. No acute events overnight. AFVSS. Reports he is feeling well just weak and shaky on his feet. Looking forward to working with PT and getting stronger. States he plans on quitting drugs and alcohol by going to a sober house; also planning on getting a job. Denies CP, SOB, N/V, abdominal pain, diarrhea. Tolerating PO. Objective Vital Signs Date Time Temp Pulse Resp B/P (MAP) Pulse Ox O2 Delivery O2 Flow Rate FiO2 12/03/17 06:00 66 12/03/17 04:00 68 12/03/17 04:00 97.9 57 24 110/74 (86) 98 12/03/17 02:00 75 12/03/17 00:00 98.2 68 19 111/60 (77) 94 12/03/17 00:00 69 12/02/17 22:00 81 12/02/17 21:08 98 21 12/02/17 20:00 98.1 83 34 119/57 (77) 97 12/02/17 20:00 69 12/02/17 18:00 70 12/02/17 17:00 81 12/02/17 16:00 98.3 71 23 105/61 (76) 94 12/02/17 16:00 71 12/02/17 14:00 82 12/02/17 12:00 76 12/02/17 12:00 98.1 76 23 105/61 (76) 12/02/17 10:00 70 12/02/17 08:25 99 12/02/17 08:00 98.5 62 21 123/77 (92) 95 12/02/17 08:00 68 I/O 12/02/17 12/02/17 12/02/17 12/03/17 12/03/17 12/03/17 07:00 15:00 23:00 07:00 15:00 23:00 Intake Total 1441.5 ml 363 ml 862.3 ml Output Total 1350 ml 1800 ml 1750 ml Balance 91.5 ml 363 ml -937.7 ml -1750 ml Intake Oral 600 ml IV Total 1441.5 ml 363 ml 262.3 ml Output Urine Total 1350 ml 1800 ml 1750 ml # Bowel Movements 0 0 Result Diagram: 12/02/17 0425 12/02/17424 Objective Remarks GENERAL: Thin, disheveled male laying comfortably in bed in NAD. SKIN: Warm and dry. Multiple tattoos over chest, back, and extremities. HEENT: Pupils equal and round. MMM. NECK: Supple no tender LAD or JVD. HEART: RRR no m/r/g. LUNGS: CTAB without wheezes or crackles. ABDOMEN: Soft, NT, ND. EXTREMITIES: No LE edema or calf tenderness. NEURO: Awake and alert. PSYCH: Appropriate mood and affect. Speech slowed. A/P Problem List: (1) Bacteremia ICD Code: R78.81 - Bacteremia Status: Acute (2) Alcohol withdrawal ICD Code: F10.239 - Alcohol dependence with withdrawal, unspecified Status: Acute (3) Opiate withdrawal ICD Code: F11.23 - Opioid dependence with withdrawal Status: Resolved (4) IV drug abuse ICD Code: F19.10 - Other psychoactive substance abuse, uncomplicated Status: Chronic (5) Hepatitis C ICD Code: B19.20 - Unspecified viral hepatitis C without hepatic coma Status: Chronic (6) Respiratory insufficiency/failure ICD Code: R06.89 - Other abnormalities of breathing Status: Resolved (7) Thrombocytopenia ICD Code: D69.6 - Thrombocytopenia, unspecified Status: Chronic Assessment and Plan 47 YOWM with h/o ETOH abuse and IVDU admitted on 11/24 to the ICU for overdose. Staph aureus/staph haemolyticus bacteremia Blood ctx + on 11/24 Repeat blood ctx on 11/27 NGTD Source likely IVDU Remains afebrile and not septic Echo negative for vegetation ID consulted - recommend IV vancomycin until 12/05. Appreciate reccs ETOH withdrawal Was on Precedex drip from 11/28-11/29 Ativan PRN (CIWA discontinued due to sedation). Hasn't required Ativan since Vital signs remain stable Librium - decrease from 50 mg Q6H to Q8H to begin taper Counseled on cessation MTV, thiamine, and folic acid daily (change all IV to PO) Opiate use and withdrawal Continue Librium Counseled on cessation - plans to go to a sober house Hepatitis C LFTs mildly elevated Genotype and viral load pending Thrombocytopenia Likely from longstanding ETOH abuse Improving No signs of active bleeding Deconditioning PT consulted OOB with assistance DVT prophylaxis Lovenox Disposition Transfer out of unit Discharge Planning Anticipate D/C on 12/05 once IV abx discontinued if remains clinically stable Thao Pineda MD Dec 03, 2017 07:47
[2017-12-03] MEDS: CHLORHEXIDINE 0.12% (ORAL KIT) 15 ML CUP MT SCH ×2 (08:00→22:10)
[2017-12-03] MEDS: PANTOPRAZOLE SOD 40 MG DELAYED RELEASE TAB PO SCH (10:36)
[2017-12-03] MEDS: THIAMINE HCL 100 MG TAB PO SCH (10:36)
[2017-12-03] MEDS: MULTIVITAMIN TAB PO SCH (10:36)
[2017-12-03] MEDS: SODIUM CHLORIDE 0.9% FLUSH 10 ML FLUSH IV FLUSH SCH ×2 (10:37→22:12)
[2017-12-03] MEDS: FOLIC ACID 1 MG TAB PO SCH (10:37)
[2017-12-03] MEDS: ENOXAPARIN SODIUM 40 MG/0.4 ML SYRINGE SQ SCH (12:06)
[2017-12-04] VITALS (8 sets, daily range): BP systolic 109–115; BP diastolic 58–68; PULSE 63–84; RESP 16–18; TEMP 97.8–98.6; O2SAT 93–97
[2017-12-04] MEDS: VANCOMYCIN INJ 1,250 MG in SODIUM CHLOR 0.9% 250 ML INJ 250 ML IV SCH ×2 (02:03→10:44)
[2017-12-04] MEDS: RESP: ALBUTEROL 2.5 MG/IPRATROPIUM 0.5 MG NEB (SCH) INH ×3 (03:09→16:00)
[2017-12-04] MEDS: CHLORHEXIDINE GLUCONATE 2 % 1 PACK (2 CLOTHS) TOP SCH (03:17)
[2017-12-04] MEDS: chlordiazePOXIDE 25 MG CAP PO SCH ×2 (05:54→14:17)
[2017-12-04] MEDS: CHLORHEXIDINE 0.12% (ORAL KIT) 15 ML CUP MT SCH (07:33)
[2017-12-04] MEDS: FOLIC ACID 1 MG TAB PO SCH (07:34)
[2017-12-04] MEDS: THIAMINE HCL 100 MG TAB PO SCH (07:34)
[2017-12-04] MEDS: PANTOPRAZOLE SOD 40 MG DELAYED RELEASE TAB PO SCH (07:34)
[2017-12-04] MEDS: MULTIVITAMIN TAB PO SCH (07:34)
[2017-12-04] MEDS: SODIUM CHLORIDE 0.9% FLUSH 10 ML FLUSH IV FLUSH SCH (07:35)
[2017-12-04 09:59] LABS: CREATININE 0.81 MG/DL (0.60-1.30)
[2017-12-04] MEDS: ENOXAPARIN SODIUM 40 MG/0.4 ML SYRINGE SQ SCH (10:43)
[2017-12-04] MEDS ORDERED: VENTAER INH (13:15)
[2017-12-04] MEDS ORDERED: CHLO25CA9 PO (13:15)
--- NOTE | 2017-12-04 13:18 | HHI.DCPOC ---
Discharge Care Plan Diagnosis: (1) Opiate withdrawal (2) IV drug abuse (3) Alcohol withdrawal (4) Respiratory insufficiency/failure (5) Bacteremia (6) Unresponsive state (7) Drug ingestion Goals to Promote Your Health * To prevent worsening of your condition and complications * To maintain your health at the optimal level Directions to Meet Your Goals Take your medications as prescribed Follow your dietary instruction Follow activity as directed Keep your appointments as scheduled Take your immunizations and boosters as scheduled If your symptoms worsen call your PCP, if no PCP go to Urgent Care Center or Emergency Room Smoking is Dangerous to Your Health. Avoid second hand smoke Call the 24-hour hour crisis hotline for domestic abuse at Supa Lawson DO Dec 04, 2017 13:18
--- NOTE | 2017-12-04 13:34 | HHI.DS ---
Discharge Summary Admission Date Nov 24, 2017 at 16:00 Discharge Date: Dec 04, 2017 Admitting Diagnosis unresponsive,unable to control airway,resp failure (1) IV drug abuse ICD Code: F19.10 - Other psychoactive substance abuse, uncomplicated Status: Chronic (2) Alcohol withdrawal ICD Code: F10.239 - Alcohol dependence with withdrawal, unspecified Diagnosis: Principal Status: Acute (3) Respiratory insufficiency/failure ICD Code: R06.89 - Other abnormalities of breathing Diagnosis: Principal Status: Resolved (4) Unresponsive state ICD Code: R41.89 - Other symptoms and signs involving cognitive functions and awareness Diagnosis: Principal Status: Acute (5) Bacteremia ICD Code: R78.81 - Bacteremia Diagnosis: Principal Status: Acute (6) Drug ingestion ICD Code: T50.901A - Poisoning by unspecified drugs, medicaments and biological substances, accidental (unintentional), initial encounter Diagnosis: Principal Status: Acute Procedures Intubation/ extubation Brief History - From Admission Middle-aged gentleman with unknown past medical history was [place] station unresponsive. History is limited, no family or friends at bedside, obtained entirely from ED chart. By standards present at that time told EMS that patient is a known drug user. On EMS arrival patient had no pulse CPR was briefly initiated and after a dose of Narcan patient regained pulse and blood pressure. Upon ED arrival patient remained unresponsive but with good blood pressure and good pulse. He was immediately intubated by ED physician without using any drugs and he was noticed gagging on the ET tube therefore he was started on propofol for sedation. He received 1 L normal saline bolus. He underwent a CT head which did not show any acute pathology. [facility] service now consulted for ICU admission. Patient was seen in ER , on sedation, unresponsive. CBC/BMP: 12/02/17 0425 12/04/17 0725 Significant Findings Laboratory Tests Test 12/02/17 04:25 12/03/17 03:15 12/04/17 07:25 Red Blood Count 3.78 MIL/MM3 (4.50-5.90) Hematocrit 37.4 % (39.0-51.0) Mean Corpuscular Hemoglobin 34.9 PG (27.0-34.0) Blood Urea Nitrogen 5 MG/DL (7-18) Calcium Level 8.2 MG/DL (8.5-10.1) Chloride Level 109 MEQ/L (98-107) Vancomycin Level Trough 19.2 MCG/ML (5.0-10.0) Imaging Last Impressions Chest X-Ray 11/30/17 0600 Signed Impressions: Service Date/Time: Thursday, November 30, 2017 04:28 - CONCLUSION: 1. Improved right lower lung zone aeration. Brady Dent MD Head CT 11/29/17 0000 Signed Impressions: Service Date/Time: Wednesday, November 29, 2017 17:46 - CONCLUSION: No evidence of acute intracranial pathology. No masses are identified. Calvin Ball MD PE at Discharge GENERAL: NAD. SKIN: Warm and dry. Multiple tattoos over chest, back, and extremities. HEENT: Pupils equal and round. MMM. NECK: Supple no tender LAD or JVD. HEART: RRR no m/r/g. LUNGS: Scattered rhonchi, some wheezing. ABDOMEN: Soft, NT, ND. EXTREMITIES: No LE edema. NEURO: Awake and alert. Able to ambulate. PSYCH: Appropriate mood and affect. Pt update on day of discharge The patient was feeling well. He stated that he could go home today. He said he has rib pain bilaterally, especially if he coughs. He said he will try to quit smoking. He says he believes he can get a prescription of Librium filled. He requests closed. He states he has been ambulating well. Discussed with nursing. Hospital Course 47 YOWM with h/o ETOH abuse and IVDU admitted on 11/24 to the ICU for overdose. On EMS arrival patient had no pulse, CPR was briefly initiated and after a dose of Narcan patient regained pulse and blood pressure. He was intubated. He appeared to be going through DTs. He was placed on CIWA protocol and a dexmedetomidine drip. He was started on standing Librium. He received thiamine, folic acid and a multivitamin. CT and EEG unremarkable. Urine tox screen on admission revealed EtOH level 322. Positive opiates and benzos UDS. He was successfully extubated and received oxygen and nebs as needed. He received incentive spirometry. He worked with PT/OT. He worked with speech therapy and his diet was advanced. He was found to have MRSA/staph hemolyticus bacteremia. Infectious disease was consulted. The pt completed a course of IV vancomycin. LFTs were elevated. Hep panel positive for HCV. Hepatitis genotype and viral load are pending. He will be discharged with albuterol and a Librium taper. Case management assisted with bus passes and medications. Pt Condition on Discharge: Stable Discharge Disposition: Discharge Home Discharge Time: > 30 minutes Discharge Instructions DIET: Follow Instructions for: Heart Healthy Diet Speech Therapy-Diet Recommends: Mechanical Soft Activities you can perform: Weight Bearing as [place] Follow up Referrals: PCP Follow-up - 1 Week New Medications: Albuterol 18 GM Inh (Ventolin Hfa 18 GM Inh) 90 Mcg/Act Aer 2 PUFF INH Q6H PRN for SHORTNESS OF BREATH, #1 INHALER 0 Refills Chlordiazepoxide HCl (Chlordiazepoxide HCl) 25 Mg Capsule 1 CAP PO BID PRN for Anxiety, #10 CAP Supa Lawson DO Dec 04, 2017 13:34
[2017-12-04 17:50] LABS: HCV RNA PCR IU/ML 286000 IU/mL (Not Detected)
== END 2017-12-04 17:00 | disposition home or self-care (01) | DRG 917 ==
LOC: NEPC 13:28 → EDBD 16:00 → NEDA 16:00 → HIMN 18:50 → N05B 12-03 12:36
PROVIDERS: ADMIT Hospitalist; ATTEND Hospitalist
PROC: 0T9B70Z Drainage of Bladder with Drainage Device, Via Natural or Artificial Opening (ICD-10-PCS; principal; 2017-11-24)
PROC: 5A1935Z Respiratory Ventilation, Less than 24 Consecutive Hours (ICD-10-PCS; 2017-11-24)
PROC: 0D9670Z Drainage of Stomach with Drainage Device, Via Natural or Artificial Opening (ICD-10-PCS; 2017-11-24)
PROC: 0BH17EZ Insertion of Endotracheal Airway into Trachea, Via Natural or Artificial Opening (ICD-10-PCS; 2017-11-24)
DX: T50.901A Poisoning by unspecified drugs, medicaments and biological substances, accidental (unintentional), initial encounter (principal); I46.8 Cardiac arrest due to other underlying condition; J96.00 Acute respiratory failure, unspecified whether with hypoxia or hypercapnia; F10.231 Alcohol dependence with withdrawal delirium; G93.40 Encephalopathy, unspecified; R78.81 Bacteremia; E87.2 Acidosis; F11.23 Opioid dependence with withdrawal; Y92.524 Gas station as the place of occurrence of the external cause; Z78.1 Physical restraint status; Y90.8 Blood alcohol level of 240 mg/100 ml or more; E87.6 Hypokalemia; R74.0 Nonspecific elevation of levels of transaminase and lactic acid dehydrogenase [LDH]; D69.59 Other secondary thrombocytopenia; B19.20 Unspecified viral hepatitis C without hepatic coma; B95.61 Methicillin susceptible Staphylococcus aureus infection as the cause of diseases classified elsewhere; R00.1 Bradycardia, unspecified; T42.6X5A Adverse effect of other antiepileptic and sedative-hypnotic drugs, initial encounter; Y92.239 Unspecified place in hospital as the place of occurrence of the external cause; E88.09 Other disorders of plasma-protein metabolism, not elsewhere classified
CPT/HCPCS: 31500; 36600; 51702; 70450; 71045; 80048; 80053; 80061; 80074; 80076; 80184; 80202; 80307; 81001; 82140; 82150; 82550; 82552; 82565; 82805; 82948; 83605; 83690; 83735; 84100; 84132; 84443; 84484; 85007; 85025; 85027; 85384; 85730; 86403; 86703; 87040; 87077; 87086; 87147; 87186; 87205; 87522; 87641; 87902; 93005; 93306; 94002; 94003; 94150; 94640; 94664; 95819; 96365; 96366; 99292; C9113; J0330; J1630; J1650; J2060; J2270; J2405; J3370; J3411; J3475; J3480; J7030; J7050; J7120